=== PATIENT | female | born 1965 | race Caucasian/White ===

== ENCOUNTER → 2016-10-31 | Day surgery (SDC) | payer OTHER ==
[2016-10-31 12:34] VITALS: BMI 25.9
[2016-10-31 15:02] VITALS: BP 140/70; PULSE 64
[2016-10-31 15:32] VITALS: TEMP 97.6
== END | disposition home or self-care (01) ==
LOC: JASU-ENDO 11:40
PROVIDERS: ATTEND Internal Medicine Gastroenterology
PROC: 0DJ08ZZ Inspection of Upper Intestinal Tract, Via Natural or Artificial Opening Endoscopic (ICD-10-PCS; principal; 2016-10-31 12:00)
DX: K21.9 Gastro-esophageal reflux disease without esophagitis (principal); K44.9 Diaphragmatic hernia without obstruction or gangrene

== ENCOUNTER → 2017-06-21 | Day surgery (SDC) | payer OTHER ==
--- NOTE | 2017-06-25 14:16 | PATH ---
Cytology Non-Gynecological Report Patient Name: ALISSA FRANCO [facility]. Rec. #: [id number] /Age/Gender: 1965 (Age: 52) / F Account: [id number] Location: RADIOLOGY Taken: 06/21/2017 Received: 06/21/2017 Reported: 06/25/2017 Physicians: Raf Rehman M.D. Specimen(s) Received LEFT THYROID FNA Clinical History Left thyroid nodule 2.60 x 1.78 x 1.38 cm Final Diagnosis THYROID, LEFT, FINE NEEDLE ASPIRATION: SATISFACTORY FOR EVALUATION. BETHESDA CLASS II: BENIGN. CYTOLOGIC FINDINGS ARE SUGGESTIVE OF A BENIGN FOLLICULAR NODULE. FEW CLUSTERS OF SMALL FOLLICULAR CELLS AND SCANT COLLOID PRESENT. 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 Recommend correlation with nodule size and complexity on ultrasound to assist in further management of the lesion. Electronically Signed Alissa Armijo M.D. Gross Description Received are eight direct smears, four of which are air-dried and Diff-Quik stained, and four of which are alcohol fixed and Pap stained. Also received is 20 ml of bloody formalin from which one cellblock is prepared. Received is a 1.5 ml molecular ThyroSeq tube.
== END | disposition home or self-care (01) ==
LOC: JRADIR 08:11
PROVIDERS: ATTEND Surgery
PROC: 0G9G3ZX Drainage of Left Thyroid Gland Lobe, Percutaneous Approach, Diagnostic (ICD-10-PCS; principal; 2017-06-21)
DX: E04.1 Nontoxic single thyroid nodule (principal)
CPT/HCPCS: 76942; 88173; 88305-TC

== ENCOUNTER 2019-04-13 12:33 | Emergency (ER) | payer OTHER ==
[2019-04-13 12:40] VITALS: TEMP 98; BMI 25.0
[2019-04-13] MEDS ORDERED: FAMOTIDINE 20 MG/50 ML IVPB 20 MG/50 ML MG IVPB ONE ×2 (13:00→13:15)
[2019-04-13] MEDS ORDERED: ONDANSETRON 4 MG/2 ML VIAL IVPUSH ONE (13:00)
[2019-04-13] MEDS ORDERED: ONDANSETRON 4 MG/2 ML VIAL ONE (13:13)
[2019-04-13] MEDS ORDERED: morphine CARPU-JECT 4 MG/1 ML DISP.SYRIN IVPUSH ONE ×2 (13:13→14:27)
[2019-04-13] MEDS ORDERED: MORPHINE SULFATE 2 MG/ML VIAL ONE (13:15)
--- NOTE | 2019-04-13 13:26 | PDOC ---
History of Present Illness - General Chief Complaint: Pain Stated Complaint: ABD PAIN Time Seen by Provider: 04/13/19 12:52 History Source: Patient Exam Limitations: Other (uncooperative with lithuanian translators despite multiple attempts; pt only answering some questions) - History of Present Illness Initial Comments: Pt is a 54 yo F, with PMH of HTN, HLD, GERD, nodular goiter, PAfib, who is presenting with complaints of LLQ abdominal and L flank pain which began last night, and is associated with NBNB nausea and vomiting. With first history taking, pt stated it was also associated with vaginal bleeding since last night , despite having hysterectomy and LMP was 3 years ago. Pt later stated there was no vaginal bleeding, but she did endorse hematuria, dysuria, and urinary frequency. Pt denies any fevers/chills, headache, vision changes, syncope, chest pain, palpitations, SOB, or diarrhea/constipation. Pt is poor historian and is generally uncooperative with computer assembler phone, despite multiple attempts at getting history. Allergies: NKDA PCP: Shalini Social: Pt denies any cigarette, alcohol, or drug use. Pt denies any recent travel or sick contacts. Surgical: hysterectomy Family: no relevant history. No known nephrolithiasis to pt or near family members. 04/13/19 13:26 04/13/19 13:45 04/13/19 13:51 Past History - Travel Traveled outside of the country in the last 30 days: No Close contact w/someone who was outside of country & ill: No - Past Medical History Allergies/Adverse Reactions: Allergies Allergy/AdvReac Type Severity Reaction Status Date / Time No Known Allergies Allergy Verified 04/13/19 12:40 Home Medications: Ambulatory Orders Omeprazole [Prilosec (RX)] 40 mg PO DAILY 08/07/15 Atorvastatin Ca [Lipitor] 20 mg PO HS #30 tablet 08/09/15 Rivaroxaban [Xarelto -] 20 mg PO DAILY 10/17/15 Metoprolol Succinate [Toprol XL -] 50 mg PO AM 04/13/19 Metoprolol Succinate [Toprol Xl] 25 mg PO HS 04/13/19 Anemia: No Asthma: No Cancer: No Cardiac Disorders: Yes (A-FIB) CVA: No COPD: No CHF: No Dementia: No Diabetes: No GI Disorders: Yes (GERD) Disorders: No HTN: Yes Hypercholesterolemia: Yes Liver Disease: No Seizures: No Thyroid Disease: No - Surgical History Abdominal Surgery: No Appendectomy: No Cholecystectomy: No Orthopedic Surgery: No - Immunization History Immunization Up to Date: Yes - Psycho Social/Smoking Cessation Hx Smoking History: Never smoked Have you smoked in the past 12 months: No Number of Cigarettes Smoked Daily: 0 Hx Alcohol Use: No Drug/Substance Use Hx: No Substance Use Type: None Abd/GI Specific PMHX - Complaint Specific PMHX Colitis: No Diverticulitis: No Gall Bladder Disease: No GERD: No Hepatitis: No Irritable Bowel Synd (IBS): No Pancreatitis: No GI Ulcer Disease: No Review of Systems - Review of Systems Able to Perform ROS?: Yes (limited, see HPI) Is the patient limited Belarusian proficient: Yes *Physical Exam - Vital Signs Last Vital Signs Temp Pulse Resp BP Pulse Ox 98 F 60 18 171/90 H 100 04/13/19 12:37 04/13/19 12:37 04/13/19 12:37 04/13/19 12:37 04/13/19 12:37 - Physical Exam Comments: HTN 171/90, pt afebrile. Pt writhing in bed, attempting to remove her clothing in the hallway. Normal body habitus. Pt alert and oriented x3. records management technician generally intact, muscular strength and sensation intact. No midline spinal tenderness, step-offs, or crepitus. Head normocephalic, atraumatic. Eyes PERRLA, EOMI. Oropharynx without erythema or exudates, no LAD b/l. No nasal congestion. Hearing intact. Clear heart sounds, S1/S2, no JVD, b/l pedal edema, or heart murmur. Clear lung sounds, no respiratory distress, wheezes, crackles, or accessory muscle use. LLQ TTP, with no rebound, no guarding. Abdomen soft, non-distended, and with normoactive bowel sounds. No CVA TTP. No blood in vaginal canal. No CMT or adnexal TTP. Physiologic discharge present. Skin without jaundice or rash. 04/13/19 13:52 ED Treatment Course - LABORATORY CBC & Chemistry Diagram: 04/13/19 13:00 04/13/19 13:00 Medical Decision Making - Medical Decision Making Pt was seen at bedside, also will be seen by attending Dr. Frias. Pt presenting with LLQ/flank pain and urinary symptoms. Pt later rescinded complaint of vaginal bleeding, and pelvic exam was normal. Pain likely 2/2 nephrolithiasis, will also evaluate for ischemic bowel (hx PAF), appendicitis, pyelonephritis, UTI, diverticulitis. Provided 4 mg IV morphine, 4 mg IV zofran, 20 mg IV pepcid for improvement of pain and vomiting. Will continue to reassess pt and monitor for symptomatic improvement. ECG: Sinus bradycardia, LAD (Hr 58, WA 130, QRS 82, QTc 465). No TWIs or significant ST segment changes. No significant changes from prior ECG. 04/13/19 13:53 Pt still in pain, providing 1 L IV NS and 15 mg IV toradol (now that pt endorses urine symptoms, more likely stone than ectopic , TOA, ruptured ovarian cyst, ovarian torsion). 04/13/19 13:57 CBC: WBC 10.7, possibly infectious or reactive due to pain/stress/inflammation CMP WNL -- renal function intact, no elevation of LFTs Lipase 124 04/13/19 13:59 04/13/19 14:01 Pt provided urine sample -- brown urine; adding CPK for rhabdo Provided additional 4 mg IV morphine; BP has remained hypertensive and pt still visibly uncomfortable Lactic acid elevated, test negative -- will obtain CT abd/pelvis with IV contrast Will repeat lactic acid after additional IVF 04/13/19 14:28 UA with blood but not infected CT abd/pelvis: 4 mm L UPJ kidney stone. No other sign of acute pathology. Pt feeling much better. Receiving 2nd liter IV NS -- will re-draw lactic after IVF Likely d/c to home with PCP and urology f/u. 04/13/19 16:07 Lactic decreasing after IVF, likely 2/2 to dehydration. Pt safe for d/c to home with PCP and Urology f/u. Strict return precautions provided with pt understanding. Pt accompanied by her daughter who will take her home. 04/13/19 18:04 Discharge - Discharge Information Problems reviewed: Yes Clinical Impression/Diagnosis: Nephrolithiasis Condition: Improved Disposition: HOME - Admission No - Follow up/Referral Referrals: Denisse Vinson MD [Primary Care Provider] - Brayan Palumbo MD., MD [Staff Physician] - - Patient Discharge Instructions Patient Printed Discharge Instructions: Kidney Stones -- Adult Additional Instructions: You were seen in the ER today for abdominal pain. The results of your labs and imaging today showed dehydration and a left kidney stone. Please follow-up with your primary care doctor and urology within 1-2 days to discuss your visit and make sure your symptoms have improved. Please return to the ER if you have any worsening pain, development of fevers or chills, loss of consciousness, inability to tolerate food or fluids, or any other concerns. You can take tylenol or motrin every 4-6 hours as needed for pain. - Post Discharge Activity
[2019-04-13] MEDS ORDERED: SODIUM CHLORIDE 1,000 ML IV STA ×2 (13:37→14:27)
[2019-04-13 13:41] LABS: BASO % 0.3 % (0-2.0); EOS % 0.7 % (0-4.5); HEMATOCRIT 37.8 % (32.4-45.2); HEMOGLOBIN 12.7 GM/dL (10.7-15.3); LYMPH % 21.6 % (8-40); MCH 29.4 pg (25.7-33.7); MCHC 33.4 g/dl (32.0-36.0); MEAN CELL VOLUME 87.9 fl (80-96); MEAN PLT VOLUME 8.1 fl (7.5-11.1); MONO % 4.6 % (3.8-10.2); NEUT % 72.8 % (42.8-82.8); PLATELET COUNT 257 K/MM3 (134-434); RBC 4.31 M/mm3 (3.60-5.2); RDW 13.9 % (11.6-15.6); WHITE BLOOD COUNT 10.7 K/mm3 (4.0-10.0)
[2019-04-13] MEDS ORDERED: KETOROLAC TROMETHAMINE 15 MG/ML VIAL IVPUSH ONE (13:41)
[2019-04-13] MEDS ORDERED: KETOROLAC TROMETHAMINE 15 MG/ML VIAL ONE (13:49)
[2019-04-13 13:50] LABS: ALBUMIN 3.8 g/dl (3.4-5.0); BILIRUBIN,TOTAL 0.4 mg/dL (0.2-1); BLOOD UREA NITROGEN 5.9 mg/dL (7-18); CALCIUM 8.9 mg/dL (8.5-10.1); CREATININE 0.9 mg/dL (0.55-1.3); POTASSIUM 3.7 mmol/L (3.5-5.1)
[2019-04-13 14:04] LABS: INR 1.54 (0.83-1.09); PROTHROMBIN TIME (PATIENT) 18.2 SEC (9.7-13.0)
[2019-04-13] MEDS ORDERED: morphine SULFATE 4 MG/ML VIAL ONE (14:28)
[2019-04-13 14:42] LABS: EPI CELLS 3.9 /HPF (0-5/HPF); HYALINE CASTS 23 /lpf (0-8); URINE APPEARANCE TURBID; URINE BACTERIA 4.1 /hpf (NEGATIVE); URINE BILIRUBIN NEGATIVE (NEGATIVE); URINE COLOR ORANGE; URINE GLUCOSE (UA) NEGATIVE (NEGATIVE); URINE KETONE 1+ (NEGATIVE); URINE LEUK ESTERASE TRACE (NEGATIVE); URINE NITRITE NEGATIVE (NEGATIVE); URINE PROTEIN 2+ (NEGATIVE); URINE RBC 1080 /hpf (0-4); URINE UROBILINOGEN 0.2 mg/dL (0.2-1.0); URINE WBC 7 /hpf (0-5)
--- NOTE | 2019-04-13 15:29 | PDOC ---
Documentation entered by Omar Baugh SCRIBE, acting as scribe for Lei Frias MD. Lei Frias MD: This documentation has been prepared by the Lupis osborn Nirvannie, SCRIBE, under my direction and personally reviewed by me in its entirety. I confirm that the documentation accurately reflects all work, treatment, procedures, and medical decision making performed by me. Attending Attestation - Resident Resident Name: June Quintanilla - ED Attending Attestation I have performed the following: I have examined & evaluated the patient, The case was reviewed & discussed with the resident, I agree w/resident's findings & plan, Exceptions are as noted - HPI HPI: 04/13/19 13:55 54 F with h/o HTN, GERD, pAfib, presenting to ED with L sided abdominal pain. Pt states that it started last night. THe pain radiates from her L flank towards her LLQ. Pt endorses nausea and vomiting. Denies F/C. She states that she noticed blood in her urine. Denies any diarrhea/constipation. Endorses dysuria and frequency. No h/o kidney stones. - Physicial Exam PE: 04/13/19 13:56 GENERAL: Awake, alert, and fully oriented, in no acute distress. HEAD: No signs of trauma EYES: PERRLA, EOMI, sclera anicteric, conjunctiva clear ENT: Auricles normal inspection, hearing grossly normal, nares patent, oropharynx clear without exudates. Moist mucosa NECK: Nontender, no stepoffs, Normal ROM, supple, no lymphadenopathy, JVD, or masses LUNGS: Breath sounds equal, clear to auscultation bilaterally. No wheezes, and no crackles HEART: Regular rate and rhythm, normal S1 and S2, no murmurs, rubs or gallops ABDOMEN: + L CVAT, + LLQ TTP, normoactive bowel sounds. No guarding, no rebound. No masses EXTREMITIES: Normal range of motion, no edema. No clubbing or cyanosis. No cords, erythema, or tenderness NEUROLOGICAL: Cranial nerves II through XII intact. 5/5 strength and sensation in all extremities, Normal speech, normal gait, normal cerebellar function SKIN: Warm, Dry, normal turgor, no rashes or lesions noted. - Medical Decision Making 04/13/19 13:57 54 F with L flank pain radiating to L groin. Suspect renal colic. - Labs, UA, UCx - CTAP - IVF, pain control
[2019-04-13 17:55] VITALS: BP 150/78; PULSE 60
--- NOTE | 2019-04-14 16:00 | EKG ---
Test Reason : Blood Pressure : / mmHG Vent. Rate : 058 BPM Atrial Rate : 058 BPM P-R Int : 130 ms QRS Dur : 082 ms QT Int : 474 ms P-R-T Axes : 018 -20 028 degrees QTc Int : 465 ms SINUS BRADYCARDIA OTHERWISE NORMAL ECG WHEN COMPARED WITH ECG OF 17-OCT-2015 11:02, SINUS RHYTHM HAS REPLACED ATRIAL FIBRILLATION VENT. RATE HAS DECREASED BY 99 BPM Confirmed by DAJUAN DE LA GARZA, CARLOS ([id number]) on 04/14/2019 4:00:20 PM Referred By: Confirmed By:CARLOS GRAFF MD
== END 2019-04-13 18:25 | disposition home or self-care (01) ==
LOC: JER 12:33
PROC: 3E0337Z Introduction of Electrolytic and Water Balance Substance into Peripheral Vein, Percutaneous Approach (ICD-10-PCS; principal; 2019-04-13)
PROC: 3E033GC Introduction of Other Therapeutic Substance into Peripheral Vein, Percutaneous Approach (ICD-10-PCS; 2019-04-13)
PROC: 3E033NZ Introduction of Analgesics, Hypnotics, Sedatives into Peripheral Vein, Percutaneous Approach (ICD-10-PCS; 2019-04-13)
PROC: 3E033GC Introduction of Other Therapeutic Substance into Peripheral Vein, Percutaneous Approach (ICD-10-PCS; 2019-04-13)
PROC: 3E0333Z Introduction of Anti-inflammatory into Peripheral Vein, Percutaneous Approach (ICD-10-PCS; 2019-04-13)
DX: N20.0 Calculus of kidney (principal); I10 Essential (primary) hypertension; E78.5 Hyperlipidemia, unspecified; K21.9 Gastro-esophageal reflux disease without esophagitis; E04.9 Nontoxic goiter, unspecified; I48.0 Paroxysmal atrial fibrillation; Z79.01 Long term (current) use of anticoagulants; Z90.710 Acquired absence of both cervix and uterus
CPT/HCPCS: 36415; 74177-TC; 80053; 81003; 82550; 82553; 83605; 83690; 84703; 85025; 85610; 87086; 93005; 93010; 99283-25; J7030

== ENCOUNTER 2020-01-29 11:50 | Inpatient (IN) | payer OTHER ==
[2020-01-29 11:58] VITALS: BMI 26.6
--- NOTE | 2020-01-29 12:28 | PDOC ---
History of Present Illness - General Chief Complaint: Pain Stated Complaint: RECTAL BLEED Time Seen by Provider: 01/29/20 12:27 - History of Present Illness Initial Comments: 55 YOF h/o htn, afib, GERD, on xerelto presents for lower abdominal pain and hematochezia. Per patient she has had lower abdominal pain as well as upper left leg pain for over one month. Two days prior to arrival she began to experience intense 9/10 pain in her lower abdomen, particularly in the lower left quadrant. During this same period she has had 10 bloody bowel movements. She reports that the blood is mixed in with the stool and is streaking her toilet paper. She denies pain with defecation. She denies CP, SOB, N/V, fever or chills, or recent sick contacts. Past History - Medical History Allergies/Adverse Reactions: Allergies Allergy/AdvReac Type Severity Reaction Status Date / Time No Known Allergies Allergy Verified 01/29/20 11:58 Home Medications: Ambulatory Orders Omeprazole [Prilosec (RX)] 40 mg PO DAILY 08/07/15 Atorvastatin Ca [Lipitor] 20 mg PO HS #30 tablet 08/09/15 Rivaroxaban [Xarelto -] 20 mg PO DAILY 10/17/15 Metoprolol Succinate [Toprol XL -] 100 mg PO AM 04/13/19 Hydrochlorothiazide 25 mg PO DAILY 01/29/20 Anemia: No Asthma: No Cancer: No Cardiac Disorders: Yes (A-FIB) CVA: No COPD: No CHF: No Dementia: No Diabetes: No GI Disorders: Yes (GERD) Disorders: No HTN: Yes Hypercholesterolemia: Yes Liver Disease: No Seizures: No Thyroid Disease: No - Surgical History Abdominal Surgery: No Appendectomy: No Cholecystectomy: No Orthopedic Surgery: No - Reproductive History Is Patient Now?: No - Immunization History Immunization Up to Date: Yes - Psycho-Social/Smoking History Smoking History: Never smoked Have you smoked in the past 12 months: No Number of Cigarettes Smoked Daily: 0 Information on smoking cessation initiated: No - Substance Abuse Hx (Audit-C & DAST Scrn) How often the patient has a drink containing alcohol: Never Score: In Men: 4 or > Positive; In Women: 3 or > Positive: 0 Screen Result (Pos requires Nsg. Audit-10AR): Negative In the last yr the pt used illegal drug/Rx for NonMed reason: No Score: Yes response is considered Positive: 0 Screen Result (Positive result requires Nsg. DAST-10): Negative Review of Systems - Review of Systems Able to Perform ROS?: Yes Is the patient limited Wallisian proficient: Yes Constitutional: Yes: See HPI HEENTM: Yes: See HPI Respiratory: Yes: See HPI Cardiac (ROS): Yes: See HPI *Physical Exam - Vital Signs Last Vital Signs Temp Pulse Resp BP Pulse Ox 97.4 F L 102 H 18 151/92 99 01/29/20 11:56 01/29/20 11:56 01/29/20 11:56 01/29/20 11:56 01/29/20 11:56 - Physical Exam General Appearance: Yes: Nourished, Appropriately Dressed, Mild Distress HEENT: positive: EOMI, SANDRINE, Normal ENT Inspection Neck: positive: Trachea midline, Normal Thyroid Respiratory/Chest: positive: Lungs Clear, Normal Breath Sounds Cardiovascular: positive: Regular Rhythm, Regular Rate, S1, S2 Gastrointestinal/Abdominal: positive: Normal Bowel Sounds, Tender, Soft, Tenderness ED Treatment Course - LABORATORY CBC & Chemistry Diagram: 01/29/20 20:00 01/29/20 13:30 Medical Decision Making - Medical Decision Making 55 YOF h/o htn, afib, GERD, on xerelto presents for lower abdominal pain and hematochezia. Per patient she has had lower abdominal pain as well as upper left leg pain for over one month. Two days prior to arrival she began to experience intense 9/10 pain in her lower abdomen, particularly in the lower left quadrant. During this same period she has had 10 bloody bowel movements. She reports that the blood is mixed in with the stool and is streaking her toilet paper. She denies pain with defecation. She denies CP, SOB, N/V, fever or chills, or recent sick contacts. Vitals on arrival wnl, physical exam reveals ttp LLQ. ddx: diverticulitis, diverticulosis, hemorrhoids, gastritis, AVM plan: CBC, CMP, CT abdomen reassess: labs wnl, patient signed out to night team Discharge - Discharge Information Problems reviewed: Yes Clinical Impression/Diagnosis: Diverticulitis, Perforation bowel, Rectal bleed - Follow up/Referral - Patient Discharge Instructions - Post Discharge Activity
[2020-01-29 13:57] LABS: BASO % 0.6 % (0-2.0); EOS % 0.2 % (0-4.5); HEMATOCRIT 38.6 % (32.4-45.2); HEMOGLOBIN 13.1 GM/dL (10.7-15.3); LYMPH % 17.2 % (8-40); MCH 28.6 pg (25.7-33.7); MCHC 34.1 g/dl (32.0-36.0); MEAN CELL VOLUME 84.1 fl (80-96); MEAN PLT VOLUME 8.1 fl (7.5-11.1); MONO % 8.1 % (3.8-10.2); NEUT % 73.9 % (42.8-82.8); PLATELET COUNT 361 K/MM3 (134-434); RBC 4.58 M/mm3 (3.60-5.2); RDW 13.9 % (11.6-15.6); WHITE BLOOD COUNT 10.6 K/mm3 (4.0-10.0)
[2020-01-29 14:30] LABS: ALBUMIN 3.9 g/dl (3.4-5.0); BLOOD UREA NITROGEN 9.6 mg/dL (7-18); CALCIUM 9.4 mg/dL (8.5-10.1); CREATININE 0.9 mg/dL (0.55-1.3); POTASSIUM 4.5 mmol/L (3.5-5.1); TOT PROT 7.9 g/dl (6.4-8.2)
--- NOTE | 2020-01-29 16:51 | PDOC ---
Documentation entered by Avery Abernathy SCRIBE, acting as scribe for Anne Sharif MD. Anne Sharif MD: This documentation has been prepared by the Michela osborn Xhesika, SCRIBE, under my direction and personally reviewed by me in its entirety. I confirm that the documentation accurately reflects all work, treatment, procedures, and medical decision making performed by me. Attending Attestation - Resident Resident Name: Saurabh Taveras - ED Attending Attestation I have performed the following: I have examined & evaluated the patient, The case was reviewed & discussed with the resident, I agree w/resident's findings & plan, Exceptions are as noted - HPI HPI: 01/29/20 12:35 The patient is a 55y/o F with a pmh of HTN, GERD, pAfib who presents to the ED for 1 month of lower abdominal pain and rectal bleed yesterday. States pain was more severe over the past 2 days and a/w multiple BMs with blood in stool. Denies pain with defecation. Allergies: NKDA PCP: Nikos Gardner - Physicial Exam PE: 01/29/20 15:21 General: non-toxic appearing Abdomen: soft, LLQ ttp, no rebound, no guarding, no masses - Medical Decision Making 01/29/20 15:22 55 yo F with LLQ abd pain and BRBPR and on stool concern for lower GI bleed vs. diverticulitis vs. ischemic colitis vs. lower suspicion for fissures or hemorrhoids as patient also reporting abd pain vs. kidney stone. Plan: -labs -urine -CT a/p -pain control as needed -reassess This clinical encounter is taking place during a federal and state health care emergency attributable to the novel Doyle Virus pandemic. The [place] of the Department of Health and Human Services has declared, pursuant to the Public Health Service Act 319F-3 (42 U.S.C. 247d-6d), that a covered persons activities related to medical countermeasures against COVID-19 will be immune from liability under Federal and State law. Discharge - Discharge Information Problems reviewed: Yes Clinical Impression/Diagnosis: Diverticulitis, Perforation bowel, Rectal bleed - Follow up/Referral - Patient Discharge Instructions - Post Discharge Activity
[2020-01-29] MEDS ORDERED: PIPERACILLIN/TAZOB 3.375 GM 3.375 GM in DEXTROSE 5%-WATER - 50 ML IVPB ONE (20:12)
[2020-01-29] MEDS ORDERED: LACTATED RINGERS SOLUTION 1000 ML INFUS.BAG IV ONE (20:14)
[2020-01-29] MEDS ORDERED: FAMOTIDINE 20 MG/50 ML IVPB 20 MG/50 ML MG IVPB ONE ×2 (20:16→20:50)
[2020-01-29] MEDS ORDERED: morphine CARPU-JECT 2 MG/1 ML DISP.SYRIN IVPUSH ONE (20:16)
[2020-01-29] MEDS ORDERED: ONDANSETRON 4 MG/2 ML VIAL IVPUSH ONE (20:16)
[2020-01-29] MEDS ORDERED: MORPHINE SULFATE 2 MG/ML VIAL ONE (20:23)
[2020-01-29] MEDS ORDERED: PIPERACILLIN/TAZOB 3.375 GM 3.375 GM/50 ML BAG IVPB ONE (20:23)
--- NOTE | 2020-01-29 20:31 | PDOC ---
*Physical Exam - Vital Signs Last Vital Signs Temp Pulse Resp BP Pulse Ox 98.5 F 100 H 18 146/90 96 01/29/20 20:03 01/29/20 20:03 01/29/20 20:03 01/29/20 20:03 01/29/20 20:03 - Physical Exam 01/29/20 20:[address]aver[address] scan -> diverticuli w/ microperforation. Consulted w/ [place] -> he instructed to 1. stop Xarelto and 2. consult GI bc of bleeding. He will see her in the AM. ED Treatment Course - LABORATORY CBC & Chemistry Diagram: 01/29/20 13:30 01/29/20 13:30 - ADDITIONAL ORDERS Additional order review: Laboratory Results 01/29/20 01/29/20 13:30 12:22 Sodium 135 L Potassium 4.5 Chloride 97 L Carbon Dioxide 31 Anion Gap 7 L BUN 9.6 Creatinine 0.9 Est GFR (CKD-EPI)AfAm 82.84 Est GFR (CKD-EPI)NonAf 71.48 Random Glucose 91 Calcium 9.4 Total Bilirubin 1.0 AST 54 H ALT 29 Alkaline Phosphatase 125 H Total Protein 7.9 Albumin 3.9 Stool Occult Blood Positive 01/29/20 13:30 RBC 4.58 MCV 84.1 MCHC 34.1 RDW 13.9 MPV 8.1 Neutrophils % 73.9 Lymphocytes % 17.2 D Monocytes % 8.1 Eosinophils % 0.2 Basophils % 0.6 Discharge - Discharge Information Problems reviewed: Yes Clinical Impression/Diagnosis: Diverticulitis, Perforation bowel, Rectal bleed - Admission Yes - Follow up/Referral Referrals: Nikos Blood II, DO [Primary Care Provider] - - Patient Discharge Instructions - Post Discharge Activity
[2020-01-29 20:37] LABS: HEMATOCRIT 39.4 % (32.4-45.2); HEMOGLOBIN 13.4 GM/dL (10.7-15.3); MCHC 34.1 g/dl (32.0-36.0); MEAN CELL VOLUME 85.1 fl (80-96); PLATELET COUNT 269 K/MM3 (134-434); RBC 4.63 M/mm3 (3.60-5.2); RDW 13.8 % (11.6-15.6); WHITE BLOOD COUNT 10.2 K/mm3 (4.0-10.0)
[2020-01-29 21:20] LABS: INR 1.47 (0.83-1.09); PROTHROMBIN TIME (PATIENT) 17.4 SEC (9.7-13.0)
[2020-01-29] MEDS ORDERED: MORPHINE SULFATE 2 MG/ML VIAL IVPUSH PRN (21:20)
[2020-01-29 21:23] LABS: ACTIVATED PTT 35.2 SECONDS (25.2-36.5)
[2020-01-29] MEDS ORDERED: HYDROCHLOROTHIAZIDE 25 MG TABLET (FP) PO ONE (21:34)
[2020-01-29] MEDS ORDERED: HYDROCHLOROTHIAZIDE 25 MG TABLET (FP) ONE (21:57)
--- NOTE | 2020-01-29 21:58 | HP ---
CHIEF COMPLAINT: abdominal pain for one month duration PCP: Brenda HISTORY OF PRESENT ILLNESS: 50-year-old lady with Mhx of HTN, hyperlipidemia, Paroxismal AFib on Xarelto, GERD and nodular goiter (benign), diverticulosis who comes to the ER complaining from worsening abdominal pain of 2 days duration associated with bloody BM (stool mixed with blood). Pt reported that her condition started one month ago with colicky and vague abdominal pain/discomfort, not related to food, and not relieved by BM. Pt sought medical attention and saw her PCP and freight receiver but was not given specific diagnosis. She was referred to GI and had colonoscopy scheduled next week. However, her pain worsen and prevented her from doing normal activities, and yesterday she noticed bright red blood mixed with her stool. Pt denies dizziness, LOC, CP. ER course was notable for: (1) CT a/p with contrast revealed acute sigmoid diverticulitis with probable microperforation (2) consulted surgery (3) Recent Travel: no PAST MEDICAL HISTORY: HTN, hyperlipidemia, Paroxismal AFib on Xarelto, GERD and nodular goiter (benign), diverticulosis PAST SURGICAL HISTORY: c-sections, hysterectomy for endometriosis, breast reduction Social History: Smoking: denies Alcohol: denies Drugs: denies Allergies No Known Allergies Allergy (Verified 01/29/20 11:58) HOME MEDICATIONS: Home Medications Medication Instructions Recorded Omeprazole [Prilosec (RX)] 40 mg PO DAILY 08/07/15 Atorvastatin Ca [Lipitor] 20 mg PO HS #30 tablet 08/09/15 Rivaroxaban [Xarelto -] 20 mg PO DAILY 10/17/15 Metoprolol Succinate [Toprol XL -] 100 mg PO AM 04/13/19 Hydrochlorothiazide 25 mg PO DAILY 01/29/20 REVIEW OF SYSTEMS CONSTITUTIONAL: Absent: fever, chills, diaphoresis, generalized weakness, malaise, loss of appetite, weight change HEENT: Absent: rhinorrhea, nasal congestion, throat pain, throat swelling, difficulty swallowing, mouth swelling, ear pain, eye pain, visual changes CARDIOVASCULAR: Absent: chest pain, syncope, palpitations, irregular heart rate, lightheadedness, peripheral edema RESPIRATORY: Absent: cough, shortness of breath, dyspnea with exertion, orthopnea, wheezing, stridor, hemoptysis GASTROINTESTINAL: Absent: see HPI GENITOURINARY: Absent: dysuria, frequency, urgency, hesitancy, hematuria, flank pain, genital pain MUSCULOSKELETAL: Absent: myalgia, arthralgia, joint swelling, back pain, neck pain SKIN: Absent: rash, itching, pallor HEMATOLOGIC/IMMUNOLOGIC: Absent: easy bleeding, easy bruising, lymphadenopathy, frequent infections ENDOCRINE: Absent: unexplained weight gain, unexplained weight loss, heat intolerance, cold intolerance NEUROLOGIC: Absent: headache, focal weakness or paresthesias, dizziness, unsteady gait, seizure, mental status changes, bladder or bowel incontinence PSYCHIATRIC: Absent: anxiety, depression, suicidal or homicidal ideation, hallucinations. PHYSICAL EXAMINATION Vital Signs - 24 hr 01/29/20 01/29/20 11:56 20:03 Temperature 97.4 F L 98.5 F Pulse Rate 102 H Pulse Rate [ 100 H Right Radial] Respiratory 18 18 Rate Blood Pressure 151/92 Blood Pressure 146/90 [Left Arm] O2 Sat by Pulse 99 96 Oximetry (%) GENERAL: Awake, alert, and fully oriented, in no acute distress. HEAD: Normal with no signs of trauma. EYES: Pupils equal, round and reactive to light, extraocular movements intact, sclera anicteric, conjunctiva clear. No lid lag. EARS, NOSE, THROAT: Ears normal, nares patent, oropharynx clear without exudates. Moist mucous membranes. NECK: Normal range of motion, supple without lymphadenopathy, JVD, or masses. LUNGS: Breath sounds equal, clear to auscultation bilaterally. No wheezes, and no crackles. No accessory muscle use. HEART: Regular rate and rhythm, normal S1 and S2 without murmur, rub or gallop. ABDOMEN: Soft, tender LLQ, no rebound tenderness, BS+. No hepatomegaly or splenomegaly. MUSCULOSKELETAL: Normal range of motion at all joints. No bony deformities or tenderness. No CVA tenderness. UPPER EXTREMITIES: 2+ pulses, warm, well-perfused. No cyanosis. No clubbing. No peripheral edema. LOWER EXTREMITIES: 2+ pulses, warm, well-perfused. No calf tenderness. No peripheral edema. NEUROLOGICAL: Cranial nerves II-XII intact. Normal speech. Normal gait. PSYCHIATRIC: Cooperative. Good eye contact. Appropriate mood and affect. SKIN: Warm, dry, normal turgor, no rashes or lesions noted, normal capillary refill. Laboratory Results - last 24 hr 01/29/20 01/29/20 01/29/20 12:22 13:30 13:30 WBC 10.6 H RBC 4.58 Hgb 13.1 Hct 38.6 MCV 84.1 MCH 28.6 MCHC 34.1 RDW 13.9 Plt Count 361 D MPV 8.1 Absolute Neuts (auto) 7.9 Neutrophils % 73.9 Lymphocytes % 17.2 D Monocytes % 8.1 Eosinophils % 0.2 Basophils % 0.6 Nucleated RBC % 0 PT with INR INR PTT (Actin FS) Sodium 135 L Potassium 4.5 Chloride 97 L Carbon Dioxide 31 Anion Gap 7 L BUN 9.6 Creatinine 0.9 Est GFR (CKD-EPI)AfAm 82.84 Est GFR (CKD-EPI)NonAf 71.48 Random Glucose 91 Calcium 9.4 Total Bilirubin 1.0 AST 54 H ALT 29 Alkaline Phosphatase 125 H Total Protein 7.9 Albumin 3.9 Stool Occult Blood Positive 01/29/20 01/29/20 20:00 20:50 WBC 10.2 H RBC 4.63 Hgb 13.4 Hct 39.4 MCV 85.1 MCH 29.0 MCHC 34.1 RDW 13.8 Plt Count 269 D MPV 8.0 Absolute Neuts (auto) Neutrophils % Lymphocytes % Monocytes % Eosinophils % Basophils % Nucleated RBC % PT with INR 17.40 H INR 1.47 H PTT (Actin FS) 35.2 Sodium Potassium Chloride Carbon Dioxide Anion Gap BUN Creatinine Est GFR (CKD-EPI)AfAm Est GFR (CKD-EPI)NonAf Random Glucose Calcium Total Bilirubin AST ALT Alkaline Phosphatase Total Protein Albumin Stool Occult Blood ASSESSMENT/PLAN: 50-year-old lady with Mhx of HTN, hyperlipidemia, Paroxismal AFib on Xarelto, GERD, hiatal hernia, colonic polyp resection (7yrs ago) and nodular goiter (benign), diverticulosis who comes to the ER complaining from worsening abdominal pain of 2 days duration associated with bloody BM (stool mixed with blood). admitted for acute diverticulitis with microperforation. # Sepsis due to Acute sigmoid diverticulitis with microperforation: has tachycardia, leukocytosis, sourse of infection meeting sepsis criteria pt w hx of diverticulosis, colonic polyps resection [address] a/p with contrast revealed acute sigmoid diverticulitis with probable microperforation RCRI 1 (class II risk), ASA3/ASA3E surgery consulted in ED Hold Xarelto trend H&H Keep NPO, IV hydration, Zosyn follow CXR, EKG GI consult #paroxysmal AFib Hold Xarelto for now c/w metoprolol [id number] is 2 Cardiology consult HTN HLD GERD HH DVT prophylaxis with SCD in anticipation of surgery Family Medical History Family History: As Documented Family Hx Cardiac Disorders: Grandmother (maternal), Grandmother (paternal), Grandfather (maternal), Grandfather (paternal), Mother, Father Family Hx Coronary Artery Disease: Grandmother (maternal), Grandmother (paternal), Grandfather (maternal), Grandfather (paternal), Mother, Father Visit type - Emergency Visit Emergency Visit: Yes Care time: The patient presented to the Emergency Department on the above date and was hospitalized for further evaluation of their emergent condition. - New Patient This patient is new to me today: Yes Date on this admission: 01/30/20 - Critical Care Critical Care patient: No
[2020-01-29] MEDS: FAMOTIDINE 20 MG/50 ML IVPB 20 MG/50 ML MG IVPB SCH (22:12)
[2020-01-30 00:49] LABS: URINE COLOR YELLOW
[2020-01-30 00:50] LABS: PH,URINE 5.5 (5.0-8.0); URINE APPEARANCE CLEAR; URINE BILIRUBIN NEGATIVE (NEGATIVE); URINE GLUCOSE (UA) NEGATIVE (NEGATIVE); URINE KETONE 15 mg/dl (NEGATIVE)
[2020-01-30 00:51] LABS: URINE LEUK ESTERASE NEGATIVE (NEGATIVE); URINE NITRITE NEGATIVE (NEGATIVE); URINE PROTEIN NEGATIVE (NEGATIVE); URINE UROBILINOGEN 0.2 mg/dL (0.2-1.0)
[2020-01-30] MEDS ORDERED: PIPERACILLIN/TAZOBACTAM 3.375 GM VIAL IVPB ONE ×3 (03:59→17:26)
[2020-01-30] MEDS ORDERED: DEXTROSE 5%-WATER - 50 ML IVPB ONE ×3 (04:00→17:27)
[2020-01-30] MEDS: PIPERACILLIN/TAZOB 3.375 GM 3.375 GM in DEXTROSE 5%-WATER - 50 ML IVPB SCH ×4 (04:09→17:49)
--- NOTE | 2020-01-30 05:30 | CON.CARD ---
Consult Consult Specialty:: Cardiology Referred by:: Dr. Pollack Reason for Consultation:: Assistance in management of anticoagulation - History of Present Illness Chief Complaint: Abdominal pain x 1 month History of Present Illness: 55 F PAF on Xarelto (sees Dr. Shyam Gimenez) admitted with one month of crampy abdominal pain, found to have left sided diverticulitis with microperforation on CT. We are called for guidance with management of anticoagulation. She reports recent bloody bowel movements. She is guaiac + Currently in NSR, denies hx of stroke. No CP/SOB/palps. ECG: NSR 92bpm, QTc= 445ms. No Qs or sig ST changes. - History Source History Provided By: Patient (hx in [place]) - Past Medical History Cardio/Vascular: Yes: AFIB (paroxysmal), HTN, Hyperlipdemia Gastrointestinal: Yes: GERD ...: No - Past Surgical History Past Surgical History: Yes: None - Alcohol/Substance Use Hx Alcohol Use: No History of Substance Use: reports: None - Smoking History Smoking history: Never smoked Have you smoked in the past 12 months: No Aproximately how many cigarettes per day: 0 - Social History ADL: Independent Occupation: salesperson History of Recent Travel: No Home Medications - Allergies Allergies/Adverse Reactions: Allergies Allergy/AdvReac Type Severity Reaction Status Date / Time No Known Allergies Allergy Verified 01/29/20 11:58 - Home Medications Home Medications: Ambulatory Orders Omeprazole [Prilosec (RX)] 40 mg PO DAILY 08/07/15 Atorvastatin Ca [Lipitor] 20 mg PO HS #30 tablet 08/09/15 Rivaroxaban [Xarelto -] 20 mg PO DAILY 10/17/15 Metoprolol Succinate [Toprol XL -] 100 mg PO AM 04/13/19 Hydrochlorothiazide 25 mg PO DAILY 01/29/20 Family Medical History Family Hx Cardiac Disorders: Grandmother (maternal), Grandmother (paternal), Grandfather (maternal), Grandfather (paternal), Mother, Father Family Hx Coronary Artery Disease: Grandmother (maternal), Grandmother (paternal), Grandfather (maternal), Grandfather (paternal), Mother, Father Review of Systems Findings/Remarks: see HPI - Review of Systems Constitutional: reports: No Symptoms Eyes: reports: No Symptoms HENT: reports: No Symptoms Neck: reports: No Symptoms Cardiovascular: reports: No Symptoms Respiratory: reports: No Symptoms Gastrointestinal: reports: Abdominal Pain, Rectal Bleeding Genitourinary: reports: No Symptoms Breasts: reports: No Symptoms Reported Musculoskeletal: reports: No Symptoms Integumentary: reports: No Symptoms Neurological: reports: No Symptoms Endocrine: reports: No Symptoms Hematology/Lymphatic: reports: No Symptoms Psychiatric: reports: No Symptoms - Risk Factors Known Risk Factors: Yes: Age, Hypertension Vital Signs: Vital Signs Temperature 98.8 F 01/30/20 02:59 Pulse Rate 87 01/30/20 02:59 Respiratory Rate 01/30/20 02:59 Blood Pressure 157/80 01/30/20 02:59 O2 Sat by Pulse Oximetry (%) 97 01/30/20 02:59 Constitutional: Yes: No Distress, Calm Eyes: Yes: Conjunctiva Clear, EOM Intact HENT: Yes: Atraumatic, Normocephalic Neck: Yes: Supple, Trachea Midline Respiratory: Yes: Regular, CTA Bilaterally Gastrointestinal: Yes: Soft (+ left lower quad tenderness to moderate palpation, no rebound or guarding.) Cardiovascular: Yes: Regular Rate and Rhythm JVD: No Carotid Bruit: No PMI: Non-Displaced Heart Sounds: Yes: S1, S2 (rrr, no m/r/g) Edema: No Peripheral Pulses WNL: Yes Neurological: Yes: Alert, Oriented ...Motor Strength: WNL Psychiatric: Yes: WNL - Other Data Labs, Other Data: CBC, BMP 01/29/20 20:00 01/29/20 13:30 INR, PTT INR 1.47 (0.83-1.09) H 01/29/20 20:50 Laboratory Tests 01/29/20 01/29/20 13:30 13:30 WBC 10.6 H Hgb 13.1 Plt Count 361 D Sodium 135 L Potassium 4.5 Creatinine 0.9 AST 54 H ALT 29 Alkaline Phosphatase 125 H see HPI Imaging - Results Chest X-ray: Image Reviewed Cat Scan: Report Reviewed Assessment/Plan IMP: Acute sigmoid diverticulitis w/ microperforation Guaiac + PAF, currently in NSR. [id number] Score = 2 (F/HTN) REC: 1. Sigmoid diverticulitis: -with radiographic evidence microperf, guaiac + stool -Abx as per primary team, general surgery and GI -follow H/H 2. PAF: -Currently in NSR. -In this setting, Xarelto needs to be held (guaiac +, reported bloody BMS, sig sigmoid inflammation and need for possible interventions) and can be done for several days with overall low risk -Can continue Toprol to maintain NSR/ rate control if she flips into AF. -Currently hemodynamically stable Will follow
[2020-01-30 08:10] LABS: HEMATOCRIT 37.1 % (32.4-45.2); HEMOGLOBIN 12.5 GM/dL (10.7-15.3); MCH 28.8 pg (25.7-33.7); MCHC 33.7 g/dl (32.0-36.0); MEAN CELL VOLUME 85.4 fl (80-96); MEAN PLT VOLUME 8.1 fl (7.5-11.1); PLATELET COUNT 239 K/MM3 (134-434); RBC 4.34 M/mm3 (3.60-5.2); RDW 13.8 % (11.6-15.6); WHITE BLOOD COUNT 6.2 K/mm3 (4.0-10.0)
[2020-01-30 08:20] LABS: INR 1.32 (0.83-1.09); PROTHROMBIN TIME (PATIENT) 15.6 SEC (9.7-13.0)
[2020-01-30 08:52] LABS: POTASSIUM 3.7 mmol/L (3.5-5.1)
--- NOTE | 2020-01-30 09:07 | EKG ---
Test Reason : Blood Pressure : / mmHG Vent. Rate : 092 BPM Atrial Rate : 092 BPM P-R Int : 154 ms QRS Dur : 076 ms QT Int : 360 ms P-R-T Axes : 039 -21 013 degrees QTc Int : 445 ms NORMAL SINUS RHYTHM NORMAL ECG WHEN COMPARED WITH ECG OF 13-APR-2019 13:41, VENT. RATE HAS INCREASED BY 34 BPM Confirmed by ERICKA KENDALL MD ([id number]) on 01/30/2020 9:07:37 AM Referred By: Confirmed By:ERICKA KENDALL MD
[2020-01-30 09:11] LABS: ALBUMIN 3.4 g/dl (3.4-5.0); BILIRUBIN,TOTAL 0.9 mg/dL (0.2-1); BLOOD UREA NITROGEN 9.6 mg/dL (7-18); CALCIUM 8.7 mg/dL (8.5-10.1); CREATININE 0.8 mg/dL (0.55-1.3); MAGNESIUM 2.2 mg/dL (1.8-2.4); PHOSPHOROUS 4.2 mg/dL (2.5-4.9)
--- NOTE | 2020-01-30 10:04 | CONSULT ---
- Consultation REQUESTING PROVIDER: Jaki DE LA GARZA CONSULT REQUEST: We have been asked to surgically evaluate this patient for diverticulitis. Hospitalist:Troy Adams MD HISTORY OF PRESENT ILLNESS: TAZ who is a 55 y/o female who presented w/48 of suprapubic and LLQ abdominal pain; sharp in nature and w/o radiation; not improved or made worse by anything and constant w/slight improvement since initial evaluation in the ED; she has no GI/ or c/o o/w. PMHx: A fib/?GERD/HTN/diverticulitis 2014 of which she has no recollection PSHx: TAHBSO/abdominoplasty/cosmetic breast surgery Home Medications Medication Instructions Recorded Omeprazole [Prilosec (RX)] 40 mg PO DAILY 08/07/15 Atorvastatin Ca [Lipitor] 20 mg PO HS #30 tablet 08/09/15 Rivaroxaban [Xarelto -] 20 mg PO DAILY 10/17/15 Metoprolol Succinate [Toprol XL -] 100 mg PO AM 04/13/19 Hydrochlorothiazide 25 mg PO DAILY 01/29/20 Allergies Allergy/AdvReac Type Severity Reaction Status Date / Time No Known Allergies Allergy Verified 01/29/20 11:58 REVIEW OF SYSTEMS: CONSTITUTIONAL: Absent: fever, chills, diaphoresis, generalized weakness, malaise, loss of appetite, weight change CARDIOVASCULAR: Absent: chest pain, syncope, palpitations, irregular heart rate, lightheadedness, peripheral edema RESPIRATORY: Absent: cough, shortness of breath, dyspnea with exertion, wheezing, stridor, hemoptysis GASTROINTESTINAL: Present: abdominal pain, abdominal distension, nausea, vomiting, diarrhea, Absent: constipation, melena, hematochezia GENITOURINARY: Absent: dysuria, frequency, urgency, hesitancy, hematuria, flank pain, genital pain MUSCULOSKELETAL: Absent: myalgia, arthralgia, joint swelling, back pain, neck pain SKIN: Absent: rash, itching, pallor HEMATOLOGIC/IMMUNOLOGIC: Absent: easy bleeding, easy bruising, lymphadenopathy NEUROLOGIC: Absent: headache, focal weakness, paresthesias, dizziness, unsteady gait, seizure, mental status changes, bladder or bowel incontinence PSYCHIATRIC: Absent: anxiety, depression, suicidal or homicidal ideation, hallucinations. PHYSICAL EXAM: GENERAL: Awake, alert, and fully oriented, in no acute distress. HEAD: Normal with no signs of trauma. EYES: PERRL, sclera anicteric, conjunctiva clear. NECK: Normal ROM, supple without lymphadenopathy, JVD, or masses. ABDOMEN: Soft, tender LLQ and suprapubic areas, not distended, normoactive bowel sounds, voluntary guarding, no rebound, no masses. No organomegaly. Healed abdominoplasty scars; no hernias. MUSCULOSKELETAL: Normal ROM at all joints. No bony deformities or tenderness. No CVA tenderness. UPPER EXTREMITIES: 2+ pulses, warm, well-perfused. No cyanosis. Cap refill <2 seconds. No peripheral edema. LOWER EXTREMITIES: 2+ pulses, warm, well-perfused. No calf tenderness. No peripheral edema. NEUROLOGICAL: Normal speech, gait not observed. PSYCH: Cooperative. Good eye contact. Appropriate mood and affect. SKIN: Warm, dry, normal turgor, no rashes or lesions noted. Vital Signs Temperature 98.5 F 01/30/20 05:51 Pulse Rate 84 01/30/20 05:51 Respiratory Rate 20 01/30/20 05:51 Blood Pressure 127/66 01/30/20 05:51 O2 Sat by Pulse Oximetry (%) 93 L 01/30/20 05:51 Lab Results WBC 6.2 K/mm3 (4.0-10.0) 01/30/20 06:30 RBC 4.34 M/mm3 (3.60-5.2) 01/30/20 06:30 Hgb 12.5 GM/dL (10.7-15.3) 01/30/20 06:30 Hct 37.1 % (32.4-45.2) 01/30/20 06:30 MCV 85.4 fl (80-96) 01/30/20 06:30 MCHC 33.7 g/dl (32.0-36.0) 01/30/20 06:30 RDW 13.8 % (11.6-15.6) 01/30/20 06:30 Plt Count 239 K/MM3 (134-434) 01/30/20 06:30 INR 1.32 (0.83-1.09) H 01/30/20 06:30 Sodium 136 mmol/L (136-145) 01/30/20 06:30 Potassium 3.7 mmol/L (3.5-5.1) 01/30/20 06:30 Chloride 98 mmol/L (98-107) 01/30/20 06:30 Carbon Dioxide 29 mmol/L (21-32) 01/30/20 06:30 Anion Gap 9 MMOL/L (8-16) 01/30/20 06:30 BUN 9.6 mg/dL (7-18) 01/30/20 06:30 Creatinine 0.8 mg/dL (0.55-1.3) 01/30/20 06:30 Random Glucose 80 mg/dL (74-106) 01/30/20 06:30 Calcium 8.7 mg/dL (8.5-10.1) 01/30/20 06:30 Blood Type A POSITIVE 01/29/20 20:50 Antibody Screen Negative 01/29/20 20:50 CT scan a/p reviewed images and reports IMP: acute sigmoid diverticulitis PLAN: NPO/IVF/IVABS and f/u; trend temp and WBC. Lei Durham MD FACS
--- NOTE | 2020-01-30 10:18 | CON.ID ---
Consult Consult Specialty:: infectious diseases Referred by:: Reason for Consultation:: abd pain, diverticulitis - History of Present Illness Chief Complaint: abd pain History of Present Illness: 30yoM with h/o cerebral palsy, nonverbal at baseline, seizures, asthma, and multiple prior admissions for hypoxia and aspiration pneumonia who presents from [facility] due to cough and vomiting. Patient was recently admitted 01/16-01/21 with aspiration pneumonia and discharged on clindamycin, which just completed on 01/24. Staff notes after his tube feed tonight he had a coughing episode and emesis so they brought him back to the ED. No known fever, diarrhea, shortness of breath. patient does have pain in the lower left quadrant and was worked up and found to have ac diverticulitis started on iv abx - History Source History Provided By: Patient, Medical Record Limitations to Obtaining History: Language Barrier - Past Medical History Cardio/Vascular: Yes: AFIB (paroxysmal), HTN, Hyperlipdemia Gastrointestinal: Yes: GERD ...: No - Past Surgical History Past Surgical History: Yes: None - Alcohol/Substance Use Hx Alcohol Use: No History of Substance Use: reports: None - Smoking History Smoking history: Never smoked Have you smoked in the past 12 months: No Aproximately how many cigarettes per day: 0 - Social History ADL: Independent Occupation: salesperson History of Recent Travel: No Home Medications - Allergies Allergies/Adverse Reactions: Allergies Allergy/AdvReac Type Severity Reaction Status Date / Time No Known Allergies Allergy Verified 01/29/20 11:58 - Home Medications Home Medications: Ambulatory Orders Omeprazole [Prilosec (RX)] 40 mg PO DAILY 08/07/15 Atorvastatin Ca [Lipitor] 20 mg PO HS #30 tablet 08/09/15 Rivaroxaban [Xarelto -] 20 mg PO DAILY 10/17/15 Metoprolol Succinate [Toprol XL -] 100 mg PO AM 04/13/19 Hydrochlorothiazide 25 mg PO DAILY 01/29/20 Family Medical History Family Hx Cardiac Disorders: Grandmother (maternal), Grandmother (paternal), Grandfather (maternal), Grandfather (paternal), Mother, Father Family Hx Coronary Artery Disease: Grandmother (maternal), Grandmother (paternal), Grandfather (maternal), Grandfather (paternal), Mother, Father Review of Systems - Review of Systems Constitutional: reports: No Symptoms Eyes: reports: No Symptoms HENT: reports: No Symptoms Neck: reports: No Symptoms Cardiovascular: reports: No Symptoms Respiratory: reports: No Symptoms Gastrointestinal: reports: Abdominal Pain, Other Genitourinary: reports: No Symptoms Musculoskeletal: reports: No Symptoms Integumentary: reports: No Symptoms Neurological: reports: No Symptoms Endocrine: reports: No Symptoms Hematology/Lymphatic: reports: No Symptoms Psychiatric: reports: No Symptoms Physical Exam Vital Signs: Vital Signs Temperature 98.5 F 01/30/20 05:51 Pulse Rate 84 01/30/20 05:51 Respiratory Rate 01/30/20 05:51 Blood Pressure 127/66 01/30/20 05:51 O2 Sat by Pulse Oximetry (%) 93 L 01/30/20 05:51 Constitutional: Yes: Well Nourished, Calm, Mild Distress Eyes: Yes: Conjunctiva Clear HENT: Yes: Atraumatic, Normocephalic Neck: Yes: Supple, Trachea Midline Cardiovascular: Yes: Pulse Irregular Respiratory: Yes: Regular, CTA Bilaterally Gastrointestinal: Yes: Soft, Tenderness, Other ...Rectal Exam: Yes: Deferred Musculoskeletal: Yes: WNL Extremities: Yes: WNL Neurological: Yes: Alert, Oriented Psychiatric: Yes: Alert, Oriented Labs: CBC, BMP 01/30/20 06:30 01/30/20 06:30 Imaging - Results Chest X-ray: Report Reviewed, Image Reviewed Cat Scan: Report Reviewed, Image Reviewed Assessment/Plan 50-year-old lady with Mhx of HTN, hyperlipidemia, Paroxismal AFib on Xarelto, GERD, hiatal hernia, colonic polyp resection (7yrs ago) and nodular goiter (benign), diverticulosis who comes to the ER complaining from worsening abdominal pain of 2 days duration associated with bloody BM (stool mixed with blood). admitted for acute diverticulitis with microperforation. ac diverticulitis leukocytosis afib htn hld gerd plan will conitnue zosyn npo hydration surgery on board rest as per the team
--- NOTE | 2020-01-30 10:29 | CON.GI ---
Consult Consult Specialty:: GI Referred by:: Hospitalist Service Reason for Consultation:: Abdominal Pain - History of Present Illness Chief Complaint: Abdominal Pain History of Present Illness: 55F admitted for evaluation of three days of progressive pelvic and LLQ pain. Prior to this had been on daily naprosyn x 2 weeks for right hip and knee pain. CT scan revealed sigmoid diverticulitis possibly with small perforation. No rectal bleeding, diarrhea. Had en episode of diverticulitis 11/02 (please refer to prior GI consult in [facility].) Had colonoscopy 03/27/14 performed by myself that revealed mild sigmoid diverticulitis and led to removal of hyperplastic rectal polyps. No family history of colon cancer. Currently, pain is about the same from admission. - History Source History Provided By: Patient, Medical Record - Past Medical History Cardio/Vascular: Yes: AFIB (paroxysmal), HTN, Hyperlipdemia Gastrointestinal: Yes: Diverticulitis (2014), Diverticulosis, GERD ...: No - Past Surgical History Past Surgical History: Yes: None Additional Surgical History: Breast reduction, Hyspterectomy due to endometriosis, abdominoplasty, cyst removal from right breast, - Alcohol/Substance Use Hx Alcohol Use: No History of Substance Use: reports: None - Smoking History Smoking history: Never smoked Have you smoked in the past 12 months: No Aproximately how many cigarettes per day: 0 - Social History ADL: Independent Occupation: salesperson Place of : Other ([employer] [employer] [facility]) History of Recent Travel: No Home Medications - Allergies Allergies/Adverse Reactions: Allergies Allergy/AdvReac Type Severity Reaction Status Date / Time No Known Allergies Allergy Verified 01/29/20 11:58 - Home Medications Home Medications: Ambulatory Orders Omeprazole [Prilosec (RX)] 40 mg PO DAILY 08/07/15 Atorvastatin Ca [Lipitor] 20 mg PO HS #30 tablet 08/09/15 Rivaroxaban [Xarelto -] 20 mg PO DAILY 10/17/15 Metoprolol Succinate [Toprol XL -] 100 mg PO AM 04/13/19 Hydrochlorothiazide 25 mg PO DAILY 01/29/20 Family Medical History Family Hx Cardiac Disorders: Grandmother (maternal), Grandmother (paternal), Grandfather (maternal), Grandfather (paternal), Mother, Father Family Hx Coronary Artery Disease: Grandmother (maternal), Grandmother (paternal), Grandfather (maternal), Grandfather (paternal), Mother, Father Other Family History: Father: h/o CAD w/ MT. Mother: h/o hyperlipidemia and HTN. 1 daughter: healthy. No family history of colorectal cancer or other GI malignancy Review of Systems - Review of Systems Constitutional: denies: Chills Cardiovascular: denies: Chest Pain Respiratory: denies: Cough Gastrointestinal: reports: Abdominal Pain. denies: Diarrhea, Melena, Rectal Bleeding Physical Exam-GI Vital Signs: Vital Signs Temperature 98.5 F 01/30/20 05:51 Pulse Rate 84 01/30/20 05:51 Respiratory Rate 20 01/30/20 05:51 Blood Pressure 127/66 01/30/20 05:51 O2 Sat by Pulse Oximetry (%) 93 L 01/30/20 05:51 Constitutional: Yes: Calm Eyes: No: Sclera Icterus Cardiovascular: Yes: Regular Rate and Rhythm Respiratory: Yes: CTA Bilaterally Gastrointestinal Inspection: Yes: Scars (+ abdominoplasty scar) ...Auscultate: Yes: Normoactive Bowel Sounds ...Palpate: Yes: Soft, Tenderness (Suprapubic / LLQ TTP) ...Percussion: No: Tympanitic Edema: No (No LE edema) Neurological: Yes: Alert Labs: CBC, BMP 01/30/20 06:30 01/30/20 06:30 INR, PTT INR 1.32 (0.83-1.09) H 01/30/20 06:30 Problem List - Problems (1) Diverticulitis Assessment/Plan: 2nd episode of acute sigmoid diverticulitis with question of microperforation given small pocket of air noted extraluminally. She is afebrile, hemodynamically stable with improved leukocytosis Recommend: Continued conservative measures for now: NPO / IV hydration Surgical evaluation Continue IV Abx per ID AM labs / CRP ordered for AM Follow-up colonoscopy in 6-8 weeks after acute issues resolve Other recommendation pending Ms. Cyr's clinical course Code(s): K57.92 - DVTRCLI OF INTEST, PART UNSP, W/O PERF OR ABSCESS W/O BLEED
[2020-01-30] MEDS: FAMOTIDINE 20 MG/50 ML IVPB 20 MG/50 ML MG IVPB SCH ×2 (10:41→21:06)
[2020-01-30] MEDS: SODIUM CHLORIDE 1,000 ML IV SCH (13:00)
--- NOTE | 2020-01-30 13:15 | PN ---
Physical Exam: SUBJECTIVE: Patient seen and examined. Complaining of lower abdominal pain, RLQ > LLQ. Denies fever, chills, SOB, chest pain, nausea, vomiting, diarrhea, constipation. OBJECTIVE: Vital Signs Period Temp Pulse Resp BP Sys/Garcia Pulse Ox Last 24 Hr 98.4 F-98.8 F 79-100 18-20 125-157/66-90 93-99 GENERAL: The patient is awake, alert, and fully oriented, in no acute distress. HEAD: Normal with no signs of trauma. EYES: PERRL, extraocular movements intact, sclera anicteric, conjunctiva clear. No ptosis. ENT: Ears normal, nares patent, oropharynx clear without exudates, moist mucous membranes. NECK: Trachea midline, full range of motion, supple. LUNGS: Breath sounds equal, clear to auscultation bilaterally, no wheezes, no crackles, no accessory muscle use. HEART: Regular rate and rhythm, S1, S2 without murmur, rub or gallop. ABDOMEN: Soft, tender in lower abdominal pain (LLQ > RLQ), rebound tenderness, normoactive bowel sounds, no guarding, no rebound, no hepatosplenomegaly, no masses. EXTREMITIES: 2+ pulses, warm, well-perfused, no edema. NEUROLOGICAL: Cranial nerves II through XII grossly intact. Normal speech, gait not observed. PSYCH: Normal mood, normal affect. SKIN: Warm, dry, normal turgor, no rashes or lesions noted Laboratory Results - last 24 hr 01/29/20 01/29/20 01/29/20 12:22 13:30 13:30 WBC 10.6 H RBC 4.58 Hgb 13.1 Hct 38.6 MCV 84.1 MCH 28.6 MCHC 34.1 RDW 13.9 Plt Count 361 D MPV 8.1 Absolute Neuts (auto) 7.9 Neutrophils % 73.9 Lymphocytes % 17.2 D Monocytes % 8.1 Eosinophils % 0.2 Basophils % 0.6 Nucleated RBC % 0 PT with INR INR PTT (Actin FS) Sodium 135 L Potassium 4.5 Chloride 97 L Carbon Dioxide 31 Anion Gap 7 L BUN 9.6 Creatinine 0.9 Est GFR (CKD-EPI)AfAm 82.84 Est GFR (CKD-EPI)NonAf 71.48 Random Glucose 91 Lactic Acid Calcium 9.4 Phosphorus Magnesium Total Bilirubin 1.0 AST 54 H ALT 29 Alkaline Phosphatase 125 H Total Protein 7.9 Albumin 3.9 TSH Urine Color Urine Appearance Urine pH Ur Specific [place] Urine Protein Urine Glucose (UA) Urine Ketones Urine Blood Urine Nitrite Urine Bilirubin Urine Urobilinogen Ur Leukocyte Esterase Stool Occult Blood Positive Blood Type Antibody Screen 01/29/20 01/29/20 01/29/20 20:00 20:50 20:50 WBC 10.2 H RBC 4.63 Hgb 13.4 Hct 39.4 MCV 85.1 MCH 29.0 MCHC 34.1 RDW 13.8 Plt Count 269 D MPV 8.0 Absolute Neuts (auto) Neutrophils % Lymphocytes % Monocytes % Eosinophils % Basophils % Nucleated RBC % PT with INR 17.40 H INR 1.47 H PTT (Actin FS) 35.2 Sodium Potassium Chloride Carbon Dioxide Anion Gap BUN Creatinine Est GFR (CKD-EPI)AfAm Est GFR (CKD-EPI)NonAf Random Glucose Lactic Acid Calcium Phosphorus Magnesium Total Bilirubin AST ALT Alkaline Phosphatase Total Protein Albumin TSH Urine Color Urine Appearance Urine pH Ur Specific [place] Urine Protein Urine Glucose (UA) Urine Ketones Urine Blood Urine Nitrite Urine Bilirubin Urine Urobilinogen Ur Leukocyte Esterase Stool Occult Blood Blood Type A POSITIVE Antibody Screen Negative 01/29/20 01/30/20 01/30/20 22:50 01:07 06:30 WBC 6.2 RBC 4.34 Hgb 12.5 Hct 37.1 MCV 85.4 MCH 28.8 MCHC 33.7 RDW 13.8 Plt Count 239 MPV 8.1 Absolute Neuts (auto) Neutrophils % Lymphocytes % Monocytes % Eosinophils % Basophils % Nucleated RBC % PT with INR INR PTT (Actin FS) Sodium Potassium Chloride Carbon Dioxide Anion Gap BUN Creatinine Est GFR (CKD-EPI)AfAm Est GFR (CKD-EPI)NonAf Random Glucose Lactic Acid 1.0 Calcium Phosphorus Magnesium Total Bilirubin AST ALT Alkaline Phosphatase Total Protein Albumin TSH Urine Color Yellow Urine Appearance Clear Urine pH 5.5 Ur Specific [place] 1.057 H Urine Protein Negative Urine Glucose (UA) Negative Urine Ketones 15 mg/dl Urine Blood Negative Urine Nitrite Negative Urine Bilirubin Negative Urine Urobilinogen 0.2 Ur Leukocyte Esterase Negative Stool Occult Blood Blood Type Antibody Screen 01/30/20 01/30/20 06:30 06:30 WBC RBC Hgb Hct MCV MCH MCHC RDW Plt Count MPV Absolute Neuts (auto) Neutrophils % Lymphocytes % Monocytes % Eosinophils % Basophils % Nucleated RBC % PT with INR 15.60 H INR 1.32 H PTT (Actin FS) Sodium 136 Potassium 3.7 Chloride 98 Carbon Dioxide 29 Anion Gap 9 BUN 9.6 Creatinine 0.8 Est GFR (CKD-EPI)AfAm 95.52 Est GFR (CKD-EPI)NonAf 82.42 Random Glucose 80 Lactic Acid Calcium 8.7 Phosphorus 4.2 Magnesium 2.2 Total Bilirubin 0.9 AST 34 ALT 28 Alkaline Phosphatase 111 Total Protein 7.0 Albumin 3.4 TSH 3.88 H Urine Color Urine Appearance Urine pH Ur Specific [place] Urine Protein Urine Glucose (UA) Urine Ketones Urine Blood Urine Nitrite Urine Bilirubin Urine Urobilinogen Ur Leukocyte Esterase Stool Occult Blood Blood Type Antibody Screen Active Medications Generic Name Dose Route Start Last Admin Trade Name Freq PRN Reason Stop Dose Admin Famotidine/Sodium Chloride 20 mg in 50 mls @ 100 mls/hr 01/29/20 22:00 01/30/20 10:41 Pepcid 20 Mg Premixed Ivpb - IVPB 100 mls/hr BID EMILY Administration Piperacillin Sod/Tazobactam 50 mls @ 100 mls/hr 01/30/20 10:45 01/30/20 10:41 Sod 3.375 gm/ Dextrose IVPB 100 mls/hr Q8H-IV EMILY Administration Protocol Sodium Chloride 1,000 mls @ 100 mls/hr 01/30/20 12:30 Normal Saline - IV ASDIR EMILY Metoprolol Succinate 100 mg 01/30/20 10:00 01/30/20 10:42 Toprol Xl - PO 100 mg DAILY EMILY Administration Morphine Sulfate 2 mg 01/29/20 21:20 Morphine Sulfate IVPUSH Q4H PRN PAIN LEVEL 6-10 ASSESSMENT/PLAN: Pt is a 55 year old male with PMHx of HTN, hyperlipidemia, Paroxismal AFib on Xarelto, GERD and nodular goiter (benign), diverticulosis presenting with worsening abdominal pain x 2 days and blood BM (mixed with stool), admitted for acute diverticulitis with probably microperforations #Acute sigmoid diverticulitis with microperforation and hematochezia -surgery/GI/ID consulted -per surgery IVF, NPO and IV zosyn; conservative management, no current surgical intervention -Held xarelto due to hematochezia -Trend H/H; currently stable (13.1 --> 13.4 --> 12.5) -Hx of diverticulosis with colonic polyps resection 7 years ago -Per GI, follow up colonoscopy in 3-4 weeks after discharge -morphine PRN for pain #Paroxysmal A fib -Held xarelto -continue metoprolol -cardio consulted #Hx of HTN -Continue metoprolol -Cont home HCTZ #Hx of HLD -Cont home statin #Hx of GERD -continue pepcid FEN NS 100cc/hr Monitor electrolytes NPO PPx SCD; held home xarelto for Afib for hematochezia/potential surgical intervention Dispo Admitted to med surg. On zosyn, NPO, IVF. Continue to follow surg recs. Held home xarelto due to hematochezia. Trend H/H. Visit type - Emergency Visit Emergency Visit: Yes ED Registration Date: 01/29/20 Care time: The patient presented to the Emergency Department on the above date and was hospitalized for further evaluation of their emergent condition. - New Patient This patient is new to me today: No - Critical Care Critical Care patient: No ATTENDING PHYSICIAN STATEMENT I saw and evaluated the patient. I reviewed the resident's note and discussed the case with the resident. I agree with the resident's findings and plan as documented. SUBJECTIVE: OBJECTIVE: ASSESSMENT AND PLAN:
--- NOTE | 2020-01-30 17:57 | PN ---
Teaching Attending Note Name of Resident: Estella Virk ATTENDING PHYSICIAN STATEMENT I saw and evaluated the patient. I reviewed the resident's note and discussed the case with the resident. I agree with the resident's findings and plan as documented. SUBJECTIVE: Ongoing LLQ pain. No nausea/vomiting/fever/chills. Reports bloody stool prior to admission - bright red blood, no further episodes. OBJECTIVE: Afebrile, Hemodynamically stable. Last Vital Signs Temp Pulse Resp BP Pulse Ox 98.6 F 84 20 120/70 98 01/30/20 16:30 01/30/20 16:30 01/30/20 16:30 01/30/20 16:30 01/30/20 15:00 HEENT - Atraumatic, Normocephalic. Heart - S1, S2, RRR Lungs - clear to auscultation Abdomen - Soft, LLQ tenderness. Bowel Sounds normal. Extremities - no edema, no calf tenderness Laboratory Results - last 24 hr 01/29/20 01/29/20 01/29/20 20:00 20:50 20:50 WBC 10.2 H RBC 4.63 Hgb 13.4 Hct 39.4 MCV 85.1 MCH 29.0 MCHC 34.1 RDW 13.8 Plt Count 269 D MPV 8.0 PT with INR 17.40 H INR 1.47 H PTT (Actin FS) 35.2 Sodium Potassium Chloride Carbon Dioxide Anion Gap BUN Creatinine Est GFR (CKD-EPI)AfAm Est GFR (CKD-EPI)NonAf Random Glucose Lactic Acid Calcium Phosphorus Magnesium Total Bilirubin AST ALT Alkaline Phosphatase Total Protein Albumin TSH Urine Color Urine Appearance Urine pH Ur Specific [place] Urine Protein Urine Glucose (UA) Urine Ketones Urine Blood Urine Nitrite Urine Bilirubin Urine Urobilinogen Ur Leukocyte Esterase Blood Type A POSITIVE Antibody Screen Negative 01/29/20 01/30/20 01/30/20 22:50 01:07 06:30 WBC 6.2 RBC 4.34 Hgb 12.5 Hct 37.1 MCV 85.4 MCH 28.8 MCHC 33.7 RDW 13.8 Plt Count 239 MPV 8.1 PT with INR INR PTT (Actin FS) Sodium Potassium Chloride Carbon Dioxide Anion Gap BUN Creatinine Est GFR (CKD-EPI)AfAm Est GFR (CKD-EPI)NonAf Random Glucose Lactic Acid 1.0 Calcium Phosphorus Magnesium Total Bilirubin AST ALT Alkaline Phosphatase Total Protein Albumin TSH Urine Color Yellow Urine Appearance Clear Urine pH 5.5 Ur Specific [place] 1.057 H Urine Protein Negative Urine Glucose (UA) Negative Urine Ketones 15 mg/dl Urine Blood Negative Urine Nitrite Negative Urine Bilirubin Negative Urine Urobilinogen 0.2 Ur Leukocyte Esterase Negative Blood Type Antibody Screen 01/30/20 01/30/20 06:30 06:30 WBC RBC Hgb Hct MCV MCH MCHC RDW Plt Count MPV PT with INR 15.60 H INR 1.32 H PTT (Actin FS) Sodium 136 Potassium 3.7 Chloride 98 Carbon Dioxide 29 Anion Gap 9 BUN 9.6 Creatinine 0.8 Est GFR (CKD-EPI)AfAm 95.52 Est GFR (CKD-EPI)NonAf 82.42 Random Glucose 80 Lactic Acid Calcium 8.7 Phosphorus 4.2 Magnesium 2.2 Total Bilirubin 0.9 AST 34 ALT 28 Alkaline Phosphatase 111 Total Protein 7.0 Albumin 3.4 TSH 3.88 H Urine Color Urine Appearance Urine pH Ur Specific [place] Urine Protein Urine Glucose (UA) Urine Ketones Urine Blood Urine Nitrite Urine Bilirubin Urine Urobilinogen Ur Leukocyte Esterase Blood Type Antibody Screen Current Medications Generic Name Dose Route Start Last Admin Trade Name Freq PRN Reason Stop Dose Admin Atorvastatin Calcium 20 mg 01/30/20 22:00 Lipitor - PO HS EMILY Hydrochlorothiazide 25 mg 01/31/20 10:00 Hctz - PO DAILY EMILY Famotidine/Sodium Chloride 20 mg in 50 mls @ 100 mls/hr 01/29/20 22:00 01/30/20 10:41 Pepcid 20 Mg Premixed Ivpb - IVPB 100 mls/hr BID EMILY Administration Piperacillin Sod/Tazobactam 50 mls @ 100 mls/hr 01/30/20 10:45 01/30/20 17:49 Sod 3.375 gm/ Dextrose IVPB 100 mls/hr Q8H-IV EMILY Administration Protocol Sodium Chloride 1,000 mls @ 100 mls/hr 01/30/20 12:30 01/30/20 13:00 Normal Saline - IV 100 mls/hr ASDIR EMILY Administration Metoprolol Succinate 100 mg 01/30/20 10:00 01/30/20 10:42 Toprol Xl - PO 100 mg DAILY EMILY Administration Morphine Sulfate 2 mg 01/29/20 21:20 01/30/20 17:46 Morphine Sulfate IVPUSH 2 mg Q4H PRN Administration PAIN LEVEL 6-10 Home Medications Medication Instructions Recorded Omeprazole [Prilosec (RX)] 40 mg PO DAILY 08/07/15 Atorvastatin Ca [Lipitor] 20 mg PO HS #30 tablet 08/09/15 Rivaroxaban [Xarelto -] 20 mg PO DAILY 10/17/15 Metoprolol Succinate [Toprol XL -] 100 mg PO AM 04/13/19 Hydrochlorothiazide 25 mg PO DAILY 01/29/20 ASSESSMENT AND PLAN: 50 year old lady with history of HTN, HLD, Paroxysmal Atrial Fibrillation on Xarelto, GERD and benign nodular goiter, Diverticulosis, history of colonic polyps s/p resection 7 years ago, presents with 2 day history of worsening abdominal pain, associated with bloody BMs. CT A/P - acute sigmoid diverticulitis with probable microperforation 1. Acute Diverticulitis with possible microperforation For conservative management for now - Continue bowel rest, IV Fluids, IV Zosyn GI, Surgery following. FOBT + Xarelto held, will monitor H/H 2. Paroxysmal Atrial Fibrillation Continue Metoprolol. Xarelto held due to FOBT+ in setting of acute diverticulitis Cardiology following. 3. HLD - Continue Metoprolol. HCTZ held. 4. HLD - Will hold Lipitor until acute illness resolves. DVT Px - SCDs. Heparin held due to guiaic positive stool. GI Px - Famotidine.
[2020-01-30] MEDS ORDERED: ATORVASTATIN CA 20 MG TABLET (FP) PO SCH (22:00)
[2020-01-31] MEDS ORDERED: DEXTROSE 5%-WATER - 50 ML IVPB ONE ×3 (01:53→16:56)
[2020-01-31] MEDS ORDERED: PIPERACILLIN/TAZOBACTAM 3.375 GM VIAL IVPB ONE ×3 (01:53→16:56)
[2020-01-31] MEDS: PIPERACILLIN/TAZOB 3.375 GM 3.375 GM in DEXTROSE 5%-WATER - 50 ML IVPB SCH ×3 (01:56→17:01)
[2020-01-31] MEDS: SODIUM CHLORIDE 1,000 ML IV SCH ×2 (02:05→17:05)
--- NOTE | 2020-01-31 08:32 | PN ---
Progress Note, Physician Chief Complaint: abd pain History of Present Illness: denies cp, sob, palp, syncope - Current Medication List Current Medications: Active Medications Famotidine/Sodium Chloride (Pepcid 20 Mg Premixed Ivpb -) 20 mg in 50 mls @ 100 mls/hr IVPB BID [facility] Last Admin: 01/30/20 21:06 Dose: 100 mls/hr Documented by: Piperacillin Sod/Tazobactam (Sod 3.375 gm/ Dextrose) 50 mls @ 100 mls/hr IVPB Q8H-IV EMILY; Protocol Last Admin: 01/31/20 01:56 Dose: 100 mls/hr Documented by: Sodium Chloride (Normal Saline -) 1,000 mls @ 100 mls/hr IV ASDIR [facility] Last Admin: 01/31/20 02:05 Dose: 100 mls/hr Documented by: Metoprolol Succinate (Toprol Xl -) 100 mg PO DAILY [facility] Last Admin: 01/30/20 10:42 Dose: 100 mg Documented by: Morphine Sulfate (Morphine Sulfate) 2 mg IVPUSH Q4H PRN PRN Reason: PAIN LEVEL 6-10 Last Admin: 01/30/20 17:46 Dose: 2 mg Documented by: - Objective Vital Signs: Vital Signs Temperature 97.6 F 01/31/20 06:13 Pulse Rate 76 01/31/20 06:13 Respiratory Rate 01/31/20 06:13 Blood Pressure 136/72 01/31/20 06:13 O2 Sat by Pulse Oximetry (%) 97 01/31/20 06:13 Constitutional: Yes: Well Nourished, No Distress, Calm Cardiovascular: Yes: Regular Rate and Rhythm, S1, S2. No: Gallop, Murmur Respiratory: Yes: Regular, CTA Bilaterally. No: Accessory Muscle Use, Rales, Wheezes Extremities: No: Cold Edema: No Neurological: Yes: Alert, Oriented Psychiatric: No: Agitated Labs: INR, PTT INR 1.32 (0.83-1.09) H 01/30/20 06:30 Assessment/Plan 1. Sigmoid diverticulitis, preop CV eval: -with radiographic evidence microperf, guaiac + stool -Abx as per primary team, general surgery and GI -follow H/H -surgery following, treating conservatively -in the event surgical treatment is indicated, pt is at acceptable CV risk for surgery with no s/sx of active CV disease and low revised CV risk index score 2. PAF: -Currently in NSR. -Xarelto held (guaiac +, reported bloody BMs, sig sigmoid inflammation and need for possible interventions) -Can continue Toprol to maintain NSR/rate control if she flips into AF. -Currently hemodynamically stable
[2020-01-31 08:34] LABS: BASO % 0.7 % (0-2.0); EOS % 2.7 % (0-4.5); HEMOGLOBIN 12.1 GM/dL (10.7-15.3); LYMPH % 38.7 % (8-40); MCH 28.6 pg (25.7-33.7); MCHC 33.6 g/dl (32.0-36.0); MEAN CELL VOLUME 85.1 fl (80-96); MEAN PLT VOLUME 7.7 fl (7.5-11.1); MONO % 13.6 % (3.8-10.2); NEUT % 44.3 % (42.8-82.8); PLATELET COUNT 254 K/MM3 (134-434); RBC 4.24 M/mm3 (3.60-5.2); RDW 13.5 % (11.6-15.6)
[2020-01-31 08:51] LABS: BLOOD UREA NITROGEN 12.1 mg/dL (7-18); CALCIUM 8.3 mg/dL (8.5-10.1); CREATININE 0.7 mg/dL (0.55-1.3); MAGNESIUM 2.2 mg/dL (1.8-2.4); PHOSPHOROUS 3.8 mg/dL (2.5-4.9); POTASSIUM 3.7 mmol/L (3.5-5.1)
[2020-01-31] MEDS: FAMOTIDINE 20 MG/50 ML IVPB 20 MG/50 ML MG IVPB SCH ×2 (09:34→21:55)
[2020-01-31] MEDS ORDERED: HYDROCHLOROTHIAZIDE 25 MG TABLET (FP) PO SCH (10:00)
--- NOTE | 2020-01-31 11:49 | PN ---
Progress Note (short form) - Note Progress Note: Attending Surgeon No c/o; feels better VSS AF abdo-soft; non tender WBC-nl IMP: improving PLAN: Suggest trial of clear liquids and continue IVAB's. Lei Durham MD FACS
--- NOTE | 2020-01-31 12:57 | PN ---
Physical Exam: SUBJECTIVE: Patient seen and examined. Improved abdominal pain. Denies f/c, n/v, diarrhea, constipation. OBJECTIVE: Vital Signs Period Temp Pulse Resp BP Sys/Garcia Pulse Ox Last 24 Hr 97.6 F-98.6 F 76-84 18-20 120-136/70-78 94-99 GENERAL: The patient is awake, alert, and fully oriented, in no acute distress. HEAD: Normal with no signs of trauma. EYES: PERRL, extraocular movements intact, sclera anicteric, conjunctiva clear. No ptosis. ENT: Ears normal, nares patent, oropharynx clear without exudates, moist mucous membranes. NECK: Trachea midline, full range of motion, supple. LUNGS: Breath sounds equal, clear to auscultation bilaterally, no wheezes, no crackles, no accessory muscle use. HEART: Regular rate and rhythm, S1, S2 without murmur, rub or gallop. ABDOMEN: Soft, tenderness in lower abdominal pain, rebound tenderness, nor moactive bowel sounds, no guarding, no rebound, no hepatosplenomegaly, no masses. EXTREMITIES: 2+ pulses, warm, well-perfused, no edema. NEUROLOGICAL: Cranial nerves II through XII grossly intact. Normal speech, gait not observed. PSYCH: Normal mood, normal affect. SKIN: Warm, dry, normal turgor, no rashes or lesions noted Laboratory Results - last 24 hr 01/29/20 01/31/20 01/31/20 22:00 07:08 07:08 WBC 4.0 RBC 4.24 Hgb 12.1 Hct 36.0 MCV 85.1 MCH 28.6 MCHC 33.6 RDW 13.5 Plt Count 254 MPV 7.7 Absolute Neuts (auto) 1.8 Neutrophils % 44.3 D Lymphocytes % 38.7 D Monocytes % 13.6 H Eosinophils % 2.7 D Basophils % 0.7 Nucleated RBC % 0 Sodium 140 Potassium 3.7 Chloride 103 Carbon Dioxide 27 Anion Gap 9 BUN 12.1 Creatinine 0.7 Est GFR (CKD-EPI)AfAm 112.26 Est GFR (CKD-EPI)NonAf 96.86 Random Glucose 62 L Calcium 8.3 L Phosphorus 3.8 Magnesium 2.2 C-Reactive Protein 8.8 H COVID-19 ([facility]) Not detected Active Medications Generic Name Dose Route Start Last Admin Trade Name Freq PRN Reason Stop Dose Admin Famotidine/Sodium Chloride 20 mg in 50 mls @ 100 mls/hr 01/29/20 22:00 01/31/20 09:34 Pepcid 20 Mg Premixed Ivpb - IVPB 100 mls/hr BID EMILY Administration Piperacillin Sod/Tazobactam 50 mls @ 100 mls/hr 01/30/20 10:45 01/31/20 10:27 Sod 3.375 gm/ Dextrose IVPB 100 mls/hr Q8H-IV EMILY Administration Protocol Sodium Chloride 1,000 mls @ 100 mls/hr 01/30/20 12:30 01/31/20 02:05 Normal Saline - IV 100 mls/hr ASDIR EMILY Administration Metoprolol Succinate 100 mg 01/30/20 10:00 01/31/20 09:34 Toprol Xl - PO 100 mg DAILY EMILY Administration Morphine Sulfate 2 mg 01/29/20 21:20 01/30/20 17:46 Morphine Sulfate IVPUSH 2 mg Q4H PRN Administration PAIN LEVEL 6-10 ASSESSMENT/PLAN: Pt is a 55 year old male with PMHx of HTN, hyperlipidemia, Paroxismal AFib on Xarelto, GERD and nodular goiter (benign), diverticulosis presenting with worsening abdominal pain x 2 days and blood BM (mixed with stool), admitted for acute diverticulitis with probably microperforations #Acute sigmoid diverticulitis with microperforation and hematochezia -surgery/GI/ID consulted -per surgery IVF, and IV zosyn; conservative management, no current surgical intervention -Trial of clear liquids per surgery - will f/u to see if tolerated -Held xarelto due to hematochezia -Trend H/H; currently stable (13.1 --> 13.4 --> 12.5 --> 12.1) -Hx of diverticulosis with colonic polyps resection 7 years ago -Per GI, follow up colonoscopy in 6-8 weeks after discharge -morphine PRN for pain #Paroxysmal A fib -Held xarelto due to hematochezia -continue metoprolol -cardio consulted #Hx of HTN -Continue metoprolol -Cont home HCTZ #Hx of HLD -Cont home statin #Hx of GERD -continue pepcid #Elevated TSH -TSH elevated 3.88 -Free T4 ordered for AM labs FEN NS 100cc/hr Monitor electrolytes Clear liquid trial PPx SCD; held home xarelto for Afib for hematochezia/potential surgical intervention Dispo Admitted to med surg. On zosyn, IVF. Continue to follow surg recs. Held home xarelto due to hematochezia. Trend H/H. Visit type - Emergency Visit Emergency Visit: Yes ED Registration Date: 01/29/20 Care time: The patient presented to the Emergency Department on the above date and was hospitalized for further evaluation of their emergent condition. - New Patient This patient is new to me today: No - Critical Care Critical Care patient: No ATTENDING PHYSICIAN STATEMENT I saw and evaluated the patient. I reviewed the resident's note and discussed the case with the resident. I agree with the resident's findings and plan as documented. SUBJECTIVE: OBJECTIVE: ASSESSMENT AND PLAN:
--- NOTE | 2020-01-31 15:38 | PN ---
Progress Note, Physician History of Present Illness: Pt states abd pain is slightly less. She has pain mainly with movement. Afebrile, without distress. - Current Medication List Current Medications: Active Medications Famotidine/Sodium Chloride (Pepcid 20 Mg Premixed Ivpb -) 20 mg in 50 mls @ 100 mls/hr IVPB BID EMILY Last Admin: 01/31/20 09:34 Dose: 100 mls/hr Documented by: Piperacillin Sod/Tazobactam (Sod 3.375 gm/ Dextrose) 50 mls @ 100 mls/hr IVPB Q8H-IV EMILY; Protocol Last Admin: 01/31/20 10:27 Dose: 100 mls/hr Documented by: Sodium Chloride (Normal Saline -) 1,000 mls @ 100 mls/hr IV ASDIR EMILY Last Admin: 01/31/20 02:05 Dose: 100 mls/hr Documented by: Metoprolol Succinate (Toprol Xl -) 100 mg PO DAILY [facility] Last Admin: 01/31/20 09:34 Dose: 100 mg Documented by: Morphine Sulfate (Morphine Sulfate) 2 mg IVPUSH Q4H PRN PRN Reason: PAIN LEVEL 6-10 Last Admin: 01/30/20 17:46 Dose: 2 mg Documented by: - Objective Vital Signs: Vital Signs Temperature 98.9 F 01/31/20 14:00 Pulse Rate 72 01/31/20 14:00 Respiratory Rate 01/31/20 14:00 Blood Pressure 130/77 01/31/20 14:00 O2 Sat by Pulse Oximetry (%) 98 01/31/20 14:00 Constitutional: Yes: No Distress, Calm Cardiovascular: Yes: Regular Rate and Rhythm Respiratory: Yes: CTA Bilaterally Gastrointestinal: Yes: Normal Bowel Sounds, Soft, Tenderness (lower abdomen with deep palpation) Genitourinary: Yes: WNL Edema: No Integumentary: Yes: WNL Neurological: Yes: Alert, Oriented Labs: CBC, BMP 01/31/20 07:08 01/31/20 07:08 INR, PTT INR 1.32 (0.83-1.09) H 01/30/20 06:30 - ....Imaging Cat Scan: Report Reviewed Assessment/Plan Acute diverticulitis w/ microperforation, no abscess -- continue antibiotics -- afebrile, wbc trended down -- Surgery following -- diet being advanced as tolerated, monitor
--- NOTE | 2020-01-31 15:38 | PN ---
Teaching Attending Note Name of Resident: Estella Virk ATTENDING PHYSICIAN STATEMENT I saw and evaluated the patient. I reviewed the resident's note and discussed the case with the resident. I agree with the resident's findings and plan as documented. SUBJECTIVE: Ongoing LLQ pain. No nausea/vomiting/fever/chills. Reports bloody stool prior to admission, no further episodes. OBJECTIVE: Afebrile, Hemodynamically stable. Last Vital Signs Temp Pulse Resp BP Pulse Ox 98.9 F 72 20 130/77 98 01/31/20 14:00 01/31/20 14:00 01/31/20 14:00 01/31/20 14:00 01/31/20 14:00 Heart - S1, S2, RRR Lungs - clear to auscultation Abdomen - Soft, LLQ tenderness. Bowel Sounds normal. Extremities - no edema, no calf tenderness Laboratory Results - last 24 hr 01/29/20 01/31/20 01/31/20 22:00 07:08 07:08 WBC 4.0 RBC 4.24 Hgb 12.1 Hct 36.0 MCV 85.1 MCH 28.6 MCHC 33.6 RDW 13.5 Plt Count 254 MPV 7.7 Absolute Neuts (auto) 1.8 Neutrophils % 44.3 D Lymphocytes % 38.7 D Monocytes % 13.6 H Eosinophils % 2.7 D Basophils % 0.7 Nucleated RBC % 0 Sodium 140 Potassium 3.7 Chloride 103 Carbon Dioxide 27 Anion Gap 9 BUN 12.1 Creatinine 0.7 Est GFR (CKD-EPI)AfAm 112.26 Est GFR (CKD-EPI)NonAf 96.86 Random Glucose 62 L Calcium 8.3 L Phosphorus 3.8 Magnesium 2.2 C-Reactive Protein 8.8 H COVID-19 ([facility]TE) Not detected Current Medications Generic Name Dose Route Start Last Admin Trade Name Freq PRN Reason Stop Dose Admin Famotidine/Sodium Chloride 20 mg in 50 mls @ 100 mls/hr 01/29/20 22:00 01/31/20 09:34 Pepcid 20 Mg Premixed Ivpb - IVPB 100 mls/hr BID EMILY Administration Piperacillin Sod/Tazobactam 50 mls @ 100 mls/hr 01/30/20 10:45 01/31/20 10:27 Sod 3.375 gm/ Dextrose IVPB 100 mls/hr Q8H-IV EMILY Administration Protocol Sodium Chloride 1,000 mls @ 100 mls/hr 01/30/20 12:30 01/31/20 02:05 Normal Saline - IV 100 mls/hr ASDIR EMILY Administration Metoprolol Succinate 100 mg 01/30/20 10:00 01/31/20 09:34 Toprol Xl - PO 100 mg DAILY EMILY Administration Morphine Sulfate 2 mg 01/29/20 21:20 01/30/20 17:46 Morphine Sulfate IVPUSH 2 mg Q4H PRN Administration PAIN LEVEL 6-10 Home Medications Medication Instructions Recorded Omeprazole [Prilosec (RX)] 40 mg PO DAILY 08/07/15 Atorvastatin Ca [Lipitor] 20 mg PO HS #30 tablet 08/09/15 Rivaroxaban [Xarelto -] 20 mg PO DAILY 10/17/15 Metoprolol Succinate [Toprol XL -] 100 mg PO AM 04/13/19 Hydrochlorothiazide 25 mg PO DAILY 01/29/20 ASSESSMENT AND PLAN: 50 year old lady with history of HTN, HLD, Paroxysmal Atrial Fibrillation on Xarelto, GERD and benign nodular goiter, Diverticulosis, history of colonic polyps s/p resection 7 years ago, presents with 2 day history of worsening abdominal pain, associated with bloody BMs. CT A/P - acute sigmoid diverticulitis with probable microperforation 1. Acute Diverticulitis with possible microperforation For conservative management for now - advance to clears, IV Fluids, IV Zosyn GI, Surgery following. FOBT +, Xarelto held, will monitor H/H 2. Paroxysmal Atrial Fibrillation Continue Metoprolol. Xarelto held due to FOBT+ in setting of acute diverticulitis Cardiology following. 3. HLD - Continue Metoprolol. HCTZ held. 4. HLD - Will hold Lipitor until acute illness resolves. 5. TSH elevated, 3.88 - Will request Free T4. DVT Px - SCDs. Heparin held due to guiaic positive stool. GI Px - Famotidine.
--- NOTE | 2020-01-31 18:34 | PN.GI ---
GI Progress Note Subjective: still with llq pain, no nausea and vomiting - Objective Vital Signs: Vital Signs Temperature 98.6 F 01/31/20 17:29 Pulse Rate 77 01/31/20 17:29 Respiratory Rate 20 01/31/20 17:29 Blood Pressure 121/65 01/31/20 17:29 O2 Sat by Pulse Oximetry (%) 98 01/31/20 14:00 Constitutional: Well Nourished Eyes: Yes: Conjunctiva Clear HENT: Yes: Atraumatic, Tonsillar Exudate Cardiovascular: Yes: Regular Rate and Rhythm Respiratory: Yes: CTA Bilaterally ...Palpate: Yes: Soft, Tenderness (llq). No: Firm/Rigid, Guarding, Hepatomegaly, Mass, Pulsatile Mass, Splenomegaly Labs: CBC, BMP 01/31/20 07:08 01/31/20 07:08 INR, PTT INR 1.32 (0.83-1.09) H 01/30/20 06:30 Problem List - Problems (1) Diverticulitis Assessment/Plan: resolving R>clear liquids continue antibiotics Code(s): K57.92 - DVTRCLI OF INTEST, PART UNSP, W/O PERF OR ABSCESS W/O BLEED
[2020-02-01] MEDS ORDERED: DEXTROSE 5%-WATER - 50 ML IVPB ONE ×3 (01:23→16:23)
[2020-02-01] MEDS ORDERED: PIPERACILLIN/TAZOBACTAM 3.375 GM VIAL IVPB ONE ×3 (01:23→16:22)
[2020-02-01] MEDS: PIPERACILLIN/TAZOB 3.375 GM 3.375 GM in DEXTROSE 5%-WATER - 50 ML IVPB SCH ×3 (01:24→17:13)
[2020-02-01 08:15] LABS: HEMOGLOBIN 11.6 GM/dL (10.7-15.3); LYMPH % 51.3 % (8-40); MCH 28.5 pg (25.7-33.7); MCHC 34.1 g/dl (32.0-36.0); MEAN CELL VOLUME 83.4 fl (80-96); MEAN PLT VOLUME 7.4 fl (7.5-11.1); MONO % 13.1 % (3.8-10.2); NEUT % 29.6 % (42.8-82.8); PLATELET COUNT 255 K/MM3 (134-434); RBC 4.08 M/mm3 (3.60-5.2); RDW 13.4 % (11.6-15.6); WHITE BLOOD COUNT 3.8 K/mm3 (4.0-10.0)
[2020-02-01 08:52] LABS: BLOOD UREA NITROGEN 6.3 mg/dL (7-18); CALCIUM 8.6 mg/dL (8.5-10.1); CREATININE 0.6 mg/dL (0.55-1.3); POTASSIUM 3.8 mmol/L (3.5-5.1)
[2020-02-01 08:55] LABS: MAGNESIUM 2.1 mg/dL (1.8-2.4)
[2020-02-01 08:59] LABS: PHOSPHOROUS 3.3 mg/dL (2.5-4.9)
[2020-02-01] MEDS ORDERED: PT OWN MED DRAWER 7, Y5N ONE (09:07)
[2020-02-01] MEDS: FAMOTIDINE 20 MG/50 ML IVPB 20 MG/50 ML MG IVPB SCH ×2 (09:12→21:50)
--- NOTE | 2020-02-01 11:20 | PN ---
Progress Note, Physician Chief Complaint: abd pain History of Present Illness: no cp, sob, palp, dizzy - Current Medication List Current Medications: Active Medications Famotidine/Sodium Chloride (Pepcid 20 Mg Premixed Ivpb -) 20 mg in 50 mls @ 100 mls/hr IVPB BID [facility] Last Admin: 02/01/20 09:12 Dose: 100 mls/hr Documented by: Piperacillin Sod/Tazobactam (Sod 3.375 gm/ Dextrose) 50 mls @ 100 mls/hr IVPB Q8H-IV EMILY; Protocol Last Admin: 02/01/20 09:12 Dose: 100 mls/hr Documented by: Sodium Chloride (Normal Saline -) 1,000 mls @ 100 mls/hr IV ASDIR [facility] Last Admin: 01/31/20 17:05 Dose: 100 mls/hr Documented by: Metoprolol Succinate (Toprol Xl -) 100 mg PO DAILY [facility] Last Admin: 02/01/20 09:12 Dose: 100 mg Documented by: Morphine Sulfate (Morphine Sulfate) 2 mg IVPUSH Q4H PRN PRN Reason: PAIN LEVEL 6-10 Last Admin: 01/30/20 17:46 Dose: 2 mg Documented by: - Objective Vital Signs: Vital Signs Temperature 98 F 02/01/20 09:02 Pulse Rate 77 02/01/20 09:02 Respiratory Rate 20 02/01/20 09:02 Blood Pressure 138/79 02/01/20 09:02 O2 Sat by Pulse Oximetry (%) 96 02/01/20 09:02 Constitutional: Yes: Well Nourished, No Distress, Calm Cardiovascular: Yes: Regular Rate and Rhythm. No: Gallop, Murmur Respiratory: Yes: Regular, CTA Bilaterally. No: Accessory Muscle Use Extremities: No: Cold Edema: No Neurological: Yes: Alert. No: Seizure Psychiatric: No: Agitated Labs: CBC, BMP 02/01/20 07:25 02/01/20 07:25 INR, PTT INR 1.32 (0.83-1.09) H 01/30/20 06:30 Assessment/Plan 1. Sigmoid diverticulitis, preop CV eval: -with radiographic evidence microperf, guaiac + stool -Abx as per primary team, general surgery and GI -follow H/H -surgery following, treating conservatively -in the event surgical treatment is indicated, pt is at acceptable CV risk for surgery with no s/sx of active CV disease and low revised CV risk index score 2. PAF: -Currently in NSR. -Xarelto held (guaiac +, reported bloody BMs, sig sigmoid inflammation and need for possible interventions) -Can continue Toprol to maintain NSR/rate control if she flips into AF. -Currently hemodynamically stable
--- NOTE | 2020-02-01 11:21 | PN ---
Progress Note (short form) - Note Progress Note: Attending Surgeon No c/o; feels better and tolerating diet VSS AF abdo-soft; non tender WBC-nl IMP: improving PLAN: Suggest advancing diet and continue IVAB's. Lei Durham MD FACS
--- NOTE | 2020-02-01 13:30 | PN ---
Progress Note (short form) - Note Progress Note: SUBJECTIVE: LLQ pain improving. No nausea/vomiting/fever/chills. Reports bloody stool prior to admission, no further episodes. OBJECTIVE: Afebrile, Hemodynamically stable. Last Vital Signs Temp Pulse Resp BP Pulse Ox 98 F 77 20 138/79 96 02/01/20 09:02 02/01/20 09:02 02/01/20 09:02 02/01/20 09:02 02/01/20 09:02 Heart - S1, S2, RRR Lungs - clear to auscultation Abdomen - high BMI, Soft, mild LLQ tenderness. Bowel Sounds normal. Extremities - no edema, no calf tenderness Laboratory Results - last 24 hr 02/01/20 02/01/20 02/01/20 07:25 07:25 07:25 WBC 3.8 L RBC 4.08 Hgb 11.6 Hct 34.0 MCV 83.4 MCH 28.5 MCHC 34.1 RDW 13.4 Plt Count 255 MPV 7.4 L Absolute Neuts (auto) 1.1 L Neutrophils % 29.6 L D Lymphocytes % 51.3 H D Monocytes % 13.1 H Eosinophils % 5.0 H D Basophils % 1.0 Nucleated RBC % 0 Sodium 140 Potassium 3.8 Chloride 107 Carbon Dioxide 28 Anion Gap 6 L BUN 6.3 L Creatinine 0.6 Est GFR (CKD-EPI)AfAm 118.09 Est GFR (CKD-EPI)NonAf 101.89 Random Glucose 92 Calcium 8.6 Phosphorus 3.3 Magnesium 2.1 Free T4 1.49 H Current Medications Generic Name Dose Route Start Last Admin Trade Name Geronimo PRN Reason Stop Dose Admin Famotidine/Sodium Chloride 20 mg in 50 mls @ 100 mls/hr 01/29/20 22:00 02/01/20 09:12 Pepcid 20 Mg Premixed Ivpb - IVPB 100 mls/hr BID EMILY Administration Piperacillin Sod/Tazobactam 50 mls @ 100 mls/hr 01/30/20 10:45 02/01/20 09:12 Sod 3.375 gm/ Dextrose IVPB 100 mls/hr Q8H-IV EMILY Administration Protocol Sodium Chloride 1,000 mls @ 100 mls/hr 01/30/20 12:30 01/31/20 17:05 Normal Saline - IV 100 mls/hr ASDIR EMILY Administration Metoprolol Succinate 100 mg 01/30/20 10:00 02/01/20 09:12 Toprol Xl - PO 100 mg DAILY EMILY Administration Morphine Sulfate 2 mg 01/29/20 21:20 01/30/20 17:46 Morphine Sulfate IVPUSH 2 mg Q4H PRN Administration PAIN LEVEL 6-10 Home Medications Medication Instructions Recorded Omeprazole [Prilosec (RX)] 40 mg PO DAILY 08/07/15 Atorvastatin Ca [Lipitor] 20 mg PO HS #30 tablet 08/09/15 Rivaroxaban [Xarelto -] 20 mg PO DAILY 10/17/15 Metoprolol Succinate [Toprol XL -] 100 mg PO AM 04/13/19 Hydrochlorothiazide 25 mg PO DAILY 01/29/20 ASSESSMENT AND PLAN: 50 year old lady with history of HTN, HLD, Paroxysmal Atrial Fibrillation on Xarelto, GERD and benign nodular goiter, Diverticulosis, history of colonic polyps s/p resection 7 years ago, presents with 2 day history of worsening abdominal pain, associated with bloody BMs. CT A/P - acute sigmoid diverticulitis with probable microperforation 1. Acute Diverticulitis with possible microperforation For conservative management for now - advance diet to soft, continue IV Fluids and IV Zosyn GI, Surgery following. FOBT +, Xarelto held, will monitor H/H 2. Paroxysmal Atrial Fibrillation Continue Metoprolol. Xarelto held due to FOBT+ in setting of acute diverticulitis Cardiology following. 3. HLD - Continue Metoprolol. HCTZ held. 4. HLD - Will hold Lipitor until acute illness resolves. 5. TSH elevated, 3.88 - T4 1.49. For repeat TFTs in 3-4 weeks once acute illness resolved. DVT Px - SCDs. Heparin held due to guiaic positive stool. GI Px - Famotidine. Visit type - Emergency Visit Emergency Visit: Yes ED Registration Date: 01/29/20 Care time: The patient presented to the Emergency Department on the above date and was hospitalized for further evaluation of their emergent condition. - New Patient This patient is new to me today: No - Critical Care Critical Care patient: No - Discharge Referral Referred to [facility] Med [facility].C.: No
--- NOTE | 2020-02-01 15:49 | PN ---
Progress Note, Physician History of Present Illness: Pt is alert, tolerating diet. Less LLQ abd pain. No episodes of n/v/d. Remains afebrile. - Current Medication List Current Medications: Active Medications Famotidine/Sodium Chloride (Pepcid 20 Mg Premixed Ivpb -) 20 mg in 50 mls @ 100 mls/hr IVPB BID EMILY Last Admin: 02/01/20 09:12 Dose: 100 mls/hr Documented by: Piperacillin Sod/Tazobactam (Sod 3.375 gm/ Dextrose) 50 mls @ 100 mls/hr IVPB Q8H-IV EMILY; Protocol Last Admin: 02/01/20 09:12 Dose: 100 mls/hr Documented by: Sodium Chloride (Normal Saline -) 1,000 mls @ 75 mls/hr IV ASDIR EMILY Metoprolol Succinate (Toprol Xl -) 100 mg PO DAILY [facility]ILY Last Admin: 02/01/20 09:12 Dose: 100 mg Documented by: Morphine Sulfate (Morphine Sulfate) 2 mg IVPUSH Q4H PRN PRN Reason: PAIN LEVEL 6-10 Last Admin: 01/30/20 17:46 Dose: 2 mg Documented by: - Objective Vital Signs: Vital Signs Temperature 97.6 F 02/01/20 14:00 Pulse Rate 71 02/01/20 14:00 Respiratory Rate 02/01/20 14:00 Blood Pressure 150/81 02/01/20 14:00 O2 Sat by Pulse Oximetry (%) 99 02/01/20 14:00 Constitutional: Yes: No Distress, Calm Cardiovascular: Yes: Regular Rate and Rhythm Respiratory: Yes: Regular Gastrointestinal: Yes: Normal Bowel Sounds, Soft, Tenderness (minimal in LLQ with deep palp) Genitourinary: Yes: WNL Neurological: Yes: Alert, Oriented Labs: CBC, BMP 02/01/20 07:25 02/01/20 07:25 INR, PTT INR 1.32 (0.83-1.09) H 01/30/20 06:30 Assessment/Plan Acute diverticulitis w/ microperforation, no abscess -- less abd pain, tolerating diet -- being managed conservatively -- continue antibiotics -- afebrile, wbc trended down -- Surgery following
[2020-02-01] MEDS: SODIUM CHLORIDE 1,000 ML IV SCH (16:00)
[2020-02-02] MEDS ORDERED: PIPERACILLIN/TAZOBACTAM 3.375 GM VIAL IVPB ONE ×3 (00:49→17:25)
[2020-02-02] MEDS ORDERED: DEXTROSE 5%-WATER - 50 ML IVPB ONE ×3 (00:50→17:25)
[2020-02-02] MEDS: PIPERACILLIN/TAZOB 3.375 GM 3.375 GM in DEXTROSE 5%-WATER - 50 ML IVPB SCH ×3 (01:03→17:28)
[2020-02-02] MEDS: SODIUM CHLORIDE 1,000 ML IV SCH ×3 (01:07→15:20)
--- NOTE | 2020-02-02 09:10 | PN ---
Progress Note (short form) - Note Progress Note: Surgery: Pt without any complaints of pain. She had 2 BMs yesterday. No nausea or emesis. Vital Signs Period Temp Pulse Resp BP Sys/Garcia Pulse Ox Last 24 Hr 97.6 F-98.5 F 71-78 19-20 131-150/73-81 97-99 GEN: A&0x3, NAD ABD: soft, non-distended, non-tender CBC, BMP 02/01/20 07:25 02/01/20 07:25 A/P: 55 yo female with sigmoid diverticulitis, ?micro perforation Pt with improved abd pain, afebrile without leukocytosis. D/w Dr. Durham and diet advanced to fulls Recommend repeat CT scan with oral/IV contrast on sunday IV abx <Ramya Robison - Last Filed: 02/02/20 09:10> - Note Progress Note: Attending Surgeon: I personally saw and examined the patient. My examination reveals a patient with acute diverticulitis. I discussed the case with the surgical PA and agree with their findings and plan of care with any exceptions as noted. ~ Lei Durham MD, FACS <Lei Durham - Last Filed: 02/10/20 08:00>
[2020-02-02] MEDS: FAMOTIDINE 20 MG/50 ML IVPB 20 MG/50 ML MG IVPB SCH ×2 (09:45→21:36)
[2020-02-02 10:22] LABS: BASO % 0.5 % (0-2.0); EOS % 3.5 % (0-4.5); HEMATOCRIT 35.5 % (32.4-45.2); HEMOGLOBIN 12.1 GM/dL (10.7-15.3); LYMPH % 59.2 % (8-40); MCH 29.1 pg (25.7-33.7); MCHC 34.1 g/dl (32.0-36.0); MEAN CELL VOLUME 85.4 fl (80-96); MEAN PLT VOLUME 7.6 fl (7.5-11.1); MONO % 7.2 % (3.8-10.2); NEUT % 29.6 % (42.8-82.8); PLATELET COUNT 279 K/MM3 (134-434); RBC 4.16 M/mm3 (3.60-5.2); RDW 13.7 % (11.6-15.6); WHITE BLOOD COUNT 3.4 K/mm3 (4.0-10.0)
--- NOTE | 2020-02-02 10:43 | PN ---
Progress Note, Physician History of Present Illness: continues to improve abd pain better tolerating liquids - Current Medication List Current Medications: Active Medications Famotidine/Sodium Chloride (Pepcid 20 Mg Premixed Ivpb -) 20 mg in 50 mls @ 100 mls/hr IVPB BID EMILY Last Admin: 02/02/20 09:45 Dose: 100 mls/hr Documented by: Piperacillin Sod/Tazobactam (Sod 3.375 gm/ Dextrose) 50 mls @ 100 mls/hr IVPB Q8H-IV EMILY; Protocol Last Admin: 02/02/20 10:33 Dose: 100 mls/hr Documented by: Sodium Chloride (Normal Saline -) 1,000 mls @ 75 mls/hr IV ASDIR EMILY Last Admin: 02/02/20 01:07 Dose: 75 mls/hr Documented by: Metoprolol Succinate (Toprol Xl -) 100 mg PO DAILY [facility] Last Admin: 02/02/20 09:44 Dose: 100 mg Documented by: Morphine Sulfate (Morphine Sulfate) 2 mg IVPUSH Q4H PRN PRN Reason: PAIN LEVEL 6-10 Last Admin: 01/30/20 17:46 Dose: 2 mg Documented by: - Objective Vital Signs: Vital Signs Temperature 98.5 F 02/01/20 17:27 Pulse Rate 75 02/01/20 22:00 Respiratory Rate 19 02/01/20 22:00 Blood Pressure 135/79 02/01/20 22:00 O2 Sat by Pulse Oximetry (%) 98 02/01/20 22:00 Constitutional: Yes: No Distress, Calm Cardiovascular: Yes: S1, S2 Respiratory: Yes: Regular, CTA Bilaterally Gastrointestinal: Yes: Soft, Hypoactive Bowel Sounds Musculoskeletal: Yes: WNL Extremities: Yes: WNL Neurological: Yes: Alert, Oriented Psychiatric: Yes: Alert, Oriented Labs: CBC, BMP 02/02/20 09:25 INR, PTT INR 1.32 (0.83-1.09) H 01/30/20 06:30 Assessment/Plan 50-year-old lady with Mhx of HTN, hyperlipidemia, Paroxismal AFib on Xarelto, GERD, hiatal hernia, colonic polyp resection (7yrs ago) and nodular goiter (benign), diverticulosis who comes to the ER complaining from worsening abdomin al pain of 2 days duration associated with bloody BM (stool mixed with blood). admitted for acute diverticulitis with microperforation. ac diverticulitis leukocytosis afib htn hld gerd plan ct abx as per surgery will change to oral once patient tolerates solid rest as per the team
[2020-02-02 10:56] LABS: BLOOD UREA NITROGEN 6.7 mg/dL (7-18); CALCIUM 8.8 mg/dL (8.5-10.1); CREATININE 0.6 mg/dL (0.55-1.3)
--- NOTE | 2020-02-02 11:08 | PN ---
Progress Note (short form) - Note Progress Note: History of Present Illness: no cp, sob, palp, dizzy Current Medications Generic Name Dose Route Start Last Admin Trade Name Freq PRN Reason Stop Dose Admin Famotidine/Sodium Chloride 20 mg in 50 mls @ 100 mls/hr 01/29/20 22:00 02/02/20 09:45 Pepcid 20 Mg Premixed Ivpb - IVPB 100 mls/hr BID EMILY Administration Piperacillin Sod/Tazobactam 50 mls @ 100 mls/hr 01/30/20 10:45 02/02/20 10:33 Sod 3.375 gm/ Dextrose IVPB 100 mls/hr Q8H-IV EMILY Administration Protocol Sodium Chloride 1,000 mls @ 75 mls/hr 02/01/20 13:31 02/02/20 01:07 Normal Saline - IV 75 mls/hr ASDIR EMILY Administration Metoprolol Succinate 100 mg 01/30/20 10:00 02/02/20 09:44 Toprol Xl - PO 100 mg DAILY EMILY Administration Morphine Sulfate 2 mg 01/29/20 21:20 01/30/20 17:46 Morphine Sulfate IVPUSH 2 mg Q4H PRN Administration PAIN LEVEL 6-10 Vital Signs Period Temp Pulse Resp BP Sys/Garcia Pulse Ox Last 24 Hr 97.6 F-98.5 F 71-78 19-20 131-150/73-81 97-99 Constitutional: Yes: Well Nourished, No Distress, Calm Cardiovascular: Yes: Regular Rate and Rhythm. No: Gallop, Murmur Respiratory: Yes: Regular, CTA Bilaterally. No: Accessory Muscle Use Extremities: No: Cold Edema: No Neurological: Yes: Alert. No: Seizure Psychiatric: No: Agitated no jaundice diaphoresis Labs: CBC, BMP 02/02/20 09:25 02/02/20 09:25 Assessment/Plan 1. Sigmoid diverticulitis, preop CV eval: -with radiographic evidence microperf, guaiac + stool -Abx as per primary team, general surgery and GI -follow H/H -surgery following, treating conservatively -in the event surgical treatment is indicated, pt is at acceptable CV risk for surgery with no s/sx of active CV disease and low revised CV risk index score 2. PAF: -Currently in NSR. -Xarelto held (guaiac +, reported bloody BMs, sig sigmoid inflammation and need for possible interventions) -Can continue Toprol to maintain NSR/rate control if she flips into AF. -Currently hemodynamically stable
--- NOTE | 2020-02-02 12:36 | PN ---
Physical Exam: SUBJECTIVE: Patient seen and examined. Vastly improved abdominal pain. Denies f/c/n/v. Denies constipation/diarrhea. Denies CP/SOB. OBJECTIVE: Vital Signs Period Temp Pulse Resp BP Sys/Garcia Pulse Ox Last 24 Hr 97.6 F-98.6 F 71-78 19-20 131-155/73-90 97-99 GENERAL: The patient is awake, alert, and fully oriented, in no acute distress. HEAD: Normal with no signs of trauma. EYES: PERRL, extraocular movements intact, sclera anicteric, conjunctiva clear. No ptosis. ENT: Ears normal, nares patent, oropharynx clear without exudates, moist mucous membranes. NECK: Trachea midline, full range of motion, supple. LUNGS: Breath sounds equal, clear to auscultation bilaterally, no wheezes, no crackles, no accessory muscle use. HEART: Regular rate and rhythm, S1, S2 without murmur, rub or gallop. ABDOMEN: Soft, nontender, nondistended, normoactive bowel sounds, no guarding, no rebound, no hepatosplenomegaly, no masses. EXTREMITIES: 2+ pulses, warm, well-perfused, no edema. NEUROLOGICAL: Cranial nerves II through XII grossly intact. Normal speech, gait not observed. PSYCH: Normal mood, normal affect. SKIN: Warm, dry, normal turgor, no rashes or lesions noted Laboratory Results - last 24 hr 02/02/20 02/02/20 09:25 09:25 WBC 3.4 L RBC 4.16 Hgb 12.1 Hct 35.5 MCV 85.4 MCH 29.1 MCHC 34.1 RDW 13.7 Plt Count 279 MPV 7.6 Absolute Neuts (auto) 1.0 L Neutrophils % 29.6 L Lymphocytes % 59.2 H Monocytes % 7.2 Eosinophils % 3.5 Basophils % 0.5 Nucleated RBC % 0 Sodium 139 Potassium 4.0 Chloride 106 Carbon Dioxide 29 Anion Gap 4 L BUN 6.7 L Creatinine 0.6 Est GFR (CKD-EPI)AfAm 118.09 Est GFR (CKD-EPI)NonAf 101.89 Random Glucose 115 H Calcium 8.8 Active Medications Generic Name Dose Route Start Last Admin Trade Name Freq PRN Reason Stop Dose Admin Famotidine/Sodium Chloride 20 mg in 50 mls @ 100 mls/hr 01/29/20 22:00 02/02/20 09:45 Pepcid 20 Mg Premixed Ivpb - IVPB 100 mls/hr BID EMILY Administration Piperacillin Sod/Tazobactam 50 mls @ 100 mls/hr 01/30/20 10:45 02/02/20 10:33 Sod 3.375 gm/ Dextrose IVPB 100 mls/hr Q8H-IV EMILY Administration Protocol Sodium Chloride 1,000 mls @ 75 mls/hr 02/01/20 13:31 02/02/20 01:07 Normal Saline - IV 75 mls/hr ASDIR EMILY Administration Metoprolol Succinate 100 mg 01/30/20 10:00 02/02/20 09:44 Toprol Xl - PO 100 mg DAILY EMILY Administration Morphine Sulfate 2 mg 01/29/20 21:20 01/30/20 17:46 Morphine Sulfate IVPUSH 2 mg Q4H PRN Administration PAIN LEVEL 6-10 ASSESSMENT/PLAN: Pt is a 55 year old male with PMHx of HTN, hyperlipidemia, Paroxismal AFib on Xarelto, GERD and nodular goiter (benign), diverticulosis presenting with worsening abdominal pain x 2 days and blood BM (mixed with stool), admitted for acute diverticulitis with probably microperforations #Sepsis 2/2 to acute sigmoid diverticulitis with microperforation and hematochezia -surgery/GI/ID consulted -per surgery IVF, and IV zosyn; conservative management, no current surgical intervention -Advanced to regular (sodium controlled) diet -Per surg - repeat CT scan with contrast in AM -Zosyn day 5 -On discharge, switch to oral augmentin and flagyl for additional 7 days -Held xarelto due to hematochezia -Stable H/H -Hx of diverticulosis with colonic polyps resection 7 years ago -Per GI, follow up colonoscopy in 6-8 weeks after discharge -morphine PRN for pain #Paroxysmal A fib -Held xarelto due to hematochezia on admission; no episodes in hospital -continue metoprolol -cardio consulted #Hx of HTN -Continue metoprolol -Held HCTZ #Hx of HLD -Held home statin until acute illness resolves #Hx of GERD -continue pepcid #Elevated TSH -TSH elevated 3.88; T4 elevated 1.49 -Repeat outpatient in 3-4 weeks FEN NS 75cc/hr Monitor electrolytes Sodium controlled diet PPx SCD; held home xarelto for Afib for hematochezia/potential surgical intervention Visit type - Emergency Visit Emergency Visit: Yes ED Registration Date: 01/29/20 Care time: The patient presented to the Emergency Department on the above date and was hospitalized for further evaluation of their emergent condition. - New Patient This patient is new to me today: No - Critical Care Critical Care patient: No ATTENDING PHYSICIAN STATEMENT I saw and evaluated the patient. I reviewed the resident's note and discussed the case with the resident. I agree with the resident's findings and plan as documented. SUBJECTIVE: OBJECTIVE: ASSESSMENT AND PLAN:
--- NOTE | 2020-02-02 15:02 | PN ---
Teaching Attending Note Name of Resident: Estella Virk ATTENDING PHYSICIAN STATEMENT I saw and evaluated the patient. I reviewed the resident's note and discussed the case with the resident. I agree with the resident's findings and plan as documented. SUBJECTIVE: LLQ pain resolved. No nausea/vomiting/fever/chills. Reports bloody stool prior to admission, no further episodes. Stool more formed, no blood reported. OBJECTIVE: Afebrile, Hemodynamically stable. Last Vital Signs Temp Pulse Resp BP Pulse Ox 98.6 F 77 20 155/90 97 02/02/20 09:00 02/02/20 09:00 02/02/20 09:00 02/02/20 09:00 02/02/20 09:00 Heart - S1, S2, RRR Lungs - clear to auscultation Abdomen - high BMI, Soft, non-tenderness. Bowel Sounds normal. Extremities - no edema, no calf tenderness Laboratory Results - last 24 hr 02/02/20 02/02/20 09:25 09:25 WBC 3.4 L RBC 4.16 Hgb 12.1 Hct 35.5 MCV 85.4 MCH 29.1 MCHC 34.1 RDW 13.7 Plt Count 279 MPV 7.6 Absolute Neuts (auto) 1.0 L Neutrophils % 29.6 L Lymphocytes % 59.2 H Monocytes % 7.2 Eosinophils % 3.5 Basophils % 0.5 Nucleated RBC % 0 Sodium 139 Potassium 4.0 Chloride 106 Carbon Dioxide 29 Anion Gap 4 L BUN 6.7 L Creatinine 0.6 Est GFR (CKD-EPI)AfAm 118.09 Est GFR (CKD-EPI)NonAf 101.89 Random Glucose 115 H Calcium 8.8 ASSESSMENT AND PLAN: 50 year old lady with history of HTN, HLD, Paroxysmal Atrial Fibrillation on Xarelto, GERD and benign nodular goiter, Diverticulosis, history of colonic polyps s/p resection 7 years ago, presents with 2 day history of worsening abdominal pain, associated with bloody BMs. CT A/P - acute sigmoid diverticulitis with probable microperforation 1. Acute Diverticulitis with possible microperforation For conservative management for now - advance diet to regular, IV Zosyn GI, Surgery following - further recommendations as per GI. FOBT +, Xarelto held, will monitor H/H For transition to oral Abx Augmentin and Flagyl on discharge for an additional 7 days. 2. Paroxysmal Atrial Fibrillation Continue Metoprolol. Xarelto held due to FOBT+ in setting of acute diverticulitis Cardiology following. 3. HLD - Continue Metoprolol. HCTZ held. 4. HLD - Will hold Lipitor until acute illness resolves. 5. TSH elevated, 3.88 - T4 1.49. For repeat TFTs in 3-4 weeks once acute illness resolved. 6. Bladder Wall thickened on CT, incidental finding - for outpatient Urology follow up. DVT Px - SCDs. Heparin held due to guiaic positive stool. GI Px - Famotidine.
[2020-02-03] MEDS ORDERED: PIPERACILLIN/TAZOBACTAM 3.375 GM VIAL IVPB ONE ×3 (02:05→17:50)
[2020-02-03] MEDS ORDERED: DEXTROSE 5%-WATER - 50 ML IVPB ONE ×3 (02:05→17:50)
[2020-02-03] MEDS: PIPERACILLIN/TAZOB 3.375 GM 3.375 GM in DEXTROSE 5%-WATER - 50 ML IVPB SCH ×3 (02:09→17:53)
--- NOTE | 2020-02-03 07:49 | PN ---
Progress Note, Physician History of Present Illness: still c/o of pain improving - Current Medication List Current Medications: Active Medications Famotidine/Sodium Chloride (Pepcid 20 Mg Premixed Ivpb -) 20 mg in 50 mls @ 100 mls/hr IVPB BID EMILY Last Admin: 02/02/20 21:36 Dose: 100 mls/hr Documented by: Piperacillin Sod/Tazobactam (Sod 3.375 gm/ Dextrose) 50 mls @ 100 mls/hr IVPB Q8H-IV EMILY; Protocol Last Admin: 02/03/20 02:09 Dose: 100 mls/hr Documented by: Sodium Chloride (Normal Saline -) 1,000 mls @ 75 mls/hr IV ASDIR EMILY Last Admin: 02/02/20 15:20 Dose: 75 mls/hr Documented by: Metoprolol Succinate (Toprol Xl -) 100 mg PO DAILY [facility] Last Admin: 02/02/20 09:44 Dose: 100 mg Documented by: Morphine Sulfate (Morphine Sulfate) 2 mg IVPUSH Q4H PRN PRN Reason: PAIN LEVEL 6-10 Last Admin: 01/30/20 17:46 Dose: 2 mg Documented by: - Objective Vital Signs: Vital Signs Temperature 97.7 F 02/03/20 06:57 Pulse Rate 60 02/03/20 06:57 Respiratory Rate 20 02/03/20 06:57 Blood Pressure 134/75 02/03/20 06:57 O2 Sat by Pulse Oximetry (%) 95 02/03/20 06:57 Constitutional: Yes: Calm, Mild Distress, Obese Cardiovascular: Yes: Regular Rate and Rhythm Respiratory: Yes: Regular, CTA Bilaterally Gastrointestinal: Yes: Normal Bowel Sounds, Soft Musculoskeletal: Yes: WNL Extremities: Yes: WNL Neurological: Yes: Alert, Oriented Psychiatric: Yes: Alert, Oriented Labs: CBC, BMP 02/02/20 09:25 02/02/20 09:25 INR, PTT INR 1.32 (0.83-1.09) H 01/30/20 06:30 Assessment/Plan 50-year-old lady with Mhx of HTN, hyperlipidemia, Paroxismal AFib on Xarelto, GERD, hiatal hernia, colonic polyp resection (7yrs ago) and nodular goiter (benign), diverticulosis who comes to the ER complaining from worsening abdominal pain of 2 days duration associated with bloody BM (stool mixed with blood). admitted for acute diverticulitis with microperforation. ac diverticulitis leukocytosis afib htn hld gerd plan ct abx as per surgery once surgery clears can change to augmentin and flagyl combination rest as per the team
[2020-02-03 08:08] LABS: HEMATOCRIT 35.1 % (32.4-45.2); HEMOGLOBIN 11.9 GM/dL (10.7-15.3); MCH 28.2 pg (25.7-33.7); MCHC 33.9 g/dl (32.0-36.0); MEAN CELL VOLUME 83.3 fl (80-96); MEAN PLT VOLUME 7.6 fl (7.5-11.1); PLATELET COUNT 286 K/MM3 (134-434); RBC 4.22 M/mm3 (3.60-5.2); RDW 13.2 % (11.6-15.6); WHITE BLOOD COUNT 4.9 K/mm3 (4.0-10.0)
[2020-02-03 08:28] LABS: BLOOD UREA NITROGEN 7.6 mg/dL (7-18); CALCIUM 8.4 mg/dL (8.5-10.1); CREATININE 0.7 mg/dL (0.55-1.3); MAGNESIUM 1.9 mg/dL (1.8-2.4); PHOSPHOROUS 3.7 mg/dL (2.5-4.9); POTASSIUM 4.1 mmol/L (3.5-5.1)
[2020-02-03] MEDS: FAMOTIDINE 20 MG/50 ML IVPB 20 MG/50 ML MG IVPB SCH (10:18)
--- NOTE | 2020-02-03 11:12 | PN ---
Progress Note (short form) - Note Progress Note: Surgery: Pt without any complaints of pain. She had a BMs yesterday/non bloody. No nausea or emesis. Vital Signs Period Temp Pulse Resp BP Sys/Garcia Pulse Ox Last 24 Hr 97.7 F-98.1 F 60-77 20-20 134-145/75-85 94-99 GEN: A&0x3, NAD ABD: soft, non-distended, non-tender CBC, BMP 02/03/20 07:05 02/03/20 07:05 A/P: 55 yo female with sigmoid diverticulitis, ?micro perforation Pt with improved abd pain, afebrile without leukocytosis. D/w Dr. Durham and diet advanced to fulls Recommend repeat CT scan with oral/IV contrast tolday. If repeat ct scan improved may adv her diet. IV abx and plan for aggarwal eto oral augmentin/flagyl D/w Dr. Durham <Ramya Robison - Last Filed: 02/03/20 11:09> - Note Progress Note: Attending Surgeon: I personally saw and examined the patient. My examination reveals a patient with acute diverticulitis. I discussed the case with the surgical PA and agree with their findings and plan of care with any exceptions as noted. ~ Lei Durham MD, FACS <Lei Durham - Last Filed: 02/10/20 07:55>
--- NOTE | 2020-02-03 12:27 | PN ---
Progress Note (short form) - Note Progress Note: s: no cp, sob, palp, dizzy Current Medications Generic Name Dose Route Start Last Admin Trade Name Freq PRN Reason Stop Dose Admin Famotidine/Sodium Chloride 20 mg in 50 mls @ 100 mls/hr 01/29/20 22:00 02/03/20 10:18 Pepcid 20 Mg Premixed Ivpb - IVPB 100 mls/hr BID EMILY Administration Piperacillin Sod/Tazobactam 50 mls @ 100 mls/hr 01/30/20 10:45 02/03/20 10:43 Sod 3.375 gm/ Dextrose IVPB 100 mls/hr Q8H-IV EMILY Administration Protocol Sodium Chloride 1,000 mls @ 75 mls/hr 02/01/20 13:31 02/02/20 15:20 Normal Saline - IV 75 mls/hr ASDIR EMILY Administration Metoprolol Succinate 100 mg 01/30/20 10:00 02/03/20 10:18 Toprol Xl - PO 100 mg DAILY EMILY Administration Morphine Sulfate 2 mg 01/29/20 21:20 01/30/20 17:46 Morphine Sulfate IVPUSH 2 mg Q4H PRN Administration PAIN LEVEL 6-10 Rivaroxaban 20 mg 02/03/20 18:00 Xarelto PO 1800 EMILY Vital Signs Period Temp Pulse Resp BP Sys/Garcia Pulse Ox Last 24 Hr 97.7 F-98.1 F 60-77 20-20 134-145/75-85 94-99 Constitutional: Yes: Well Nourished, No Distress, Calm Cardiovascular: Yes: Regular Rate and Rhythm. No: Gallop, Murmur Respiratory: Yes: Regular, CTA Bilaterally. No: Accessory Muscle Use Extremities: No: Cold Edema: No Neurological: Yes: Alert. No: Seizure Psychiatric: No: Agitated no jaundice diaphoresis Assessment/Plan 1. Sigmoid diverticulitis, preop CV eval: -with radiographic evidence microperf, guaiac + stool -Abx as per primary team, general surgery and GI -follow H/H -surgery following, improving with conservative management -in the event surgical treatment is indicated, pt is at acceptable CV risk for surgery with no s/sx of active CV disease and low revised CV risk index score 2. PAF: -Currently in NSR. -Xarelto resumed - cont toprol
--- NOTE | 2020-02-03 14:56 | PN ---
Teaching Attending Note Name of Resident: Estella Virk ATTENDING PHYSICIAN STATEMENT I saw and evaluated the patient. I reviewed the resident's note and discussed the case with the resident. I agree with the resident's findings and plan as documented. SUBJECTIVE: pt seen and examined OBJECTIVE: Last Vital Signs Temp Pulse Resp BP Pulse Ox 98.1 F 72 20 145/84 99 02/03/20 08:51 02/03/20 08:51 02/03/20 08:51 02/03/20 08:51 02/03/20 09:00 GENERAL: Awake, alert, and fully oriented, in no acute distress. HEAD: Normal with no signs of trauma. EYES: Pupils equal, round and reactive to light, sclera anicteric, conjunctiva clear. LUNGS: Breath sounds equal, clear to auscultation bilaterally. No wheezes, and no crackles. No accessory muscle use. HEART: Regular rate and rhythm, normal S1 and S2 ABDOMEN: Soft, mildly tender LLQ on deep palpation, not distended MUSCULOSKELETAL: Normal range of motion at all joints. No bony deformities or tenderness. No CVA tenderness. UPPER EXTREMITIES: 2+ pulses, warm, well-perfused. No cyanosis. No clubbing. No peripheral edema. LOWER EXTREMITIES: 2+ pulses, warm, well-perfused. No calf tenderness. No peripheral edema. NEUROLOGICAL: Cranial nerves II-XII intact. Normal speech. Laboratory Last Values WBC 4.9 K/mm3 (4.0-10.0) 02/03/20 07:05 RBC 4.22 M/mm3 (3.60-5.2) 02/03/20 07:05 Hgb 11.9 GM/dL (10.7-15.3) 02/03/20 07:05 Hct 35.1 % (32.4-45.2) 02/03/20 07:05 MCV 83.3 fl (80-96) 02/03/20 07:05 MCH 28.2 pg (25.7-33.7) 02/03/20 07:05 MCHC 33.9 g/dl (32.0-36.0) 02/03/20 07:05 RDW 13.2 % (11.6-15.6) 02/03/20 07:05 Plt Count 286 K/MM3 (134-434) 02/03/20 07:05 MPV 7.6 fl (7.5-11.1) 02/03/20 07:05 Absolute Neuts (auto) 1.0 K/mm3 (1.5-8.0) L 02/02/20 09:25 Neutrophils % 29.6 % (42.8-82.8) L 02/02/20 09:25 Lymphocytes % 59.2 % (8-40) H 02/02/20 09:25 Monocytes % 7.2 % (3.8-10.2) 02/02/20 09:25 Eosinophils % 3.5 % (0-4.5) 02/02/20 09:25 Basophils % 0.5 % (0-2.0) 02/02/20 09:25 Nucleated RBC % 0 % (0-0) 02/02/20 09:25 PT with INR 15.60 SEC (9.7-13.0) H 01/30/20 06:30 INR 1.32 (0.83-1.09) H 01/30/20 06:30 PTT (Actin FS) 35.2 SECONDS (25.2-36.5) 01/29/20 20:50 Sodium 143 mmol/L (136-145) 02/03/20 07:05 Potassium 4.1 mmol/L (3.5-5.1) 02/03/20 07:05 Chloride 110 mmol/L (98-107) H 02/03/20 07:05 Carbon Dioxide 25 mmol/L (21-32) 02/03/20 07:05 Anion Gap 7 MMOL/L (8-16) L 02/03/20 07:05 BUN 7.6 mg/dL (7-18) 02/03/20 07:05 Creatinine 0.7 mg/dL (0.55-1.3) 02/03/20 07:05 Est GFR (CKD-EPI)AfAm 112.26 02/03/20 07:05 Est GFR (CKD-EPI)NonAf 96.86 02/03/20 07:05 Random Glucose 91 mg/dL (74-106) 02/03/20 07:05 Lactic Acid 1.0 mmol/L (0.4-2.0) 01/30/20 01:07 Calcium 8.4 mg/dL (8.5-10.1) L 02/03/20 07:05 Phosphorus 3.7 mg/dL (2.5-4.9) 02/03/20 07:05 Magnesium 1.9 mg/dL (1.8-2.4) 02/03/20 07:05 Total Bilirubin 0.9 mg/dL (0.2-1) 01/30/20 06:30 AST 34 U/L (15-37) 01/30/20 06:30 ALT 28 U/L (13-61) 01/30/20 06:30 Alkaline Phosphatase 111 U/L (45-117) 01/30/20 06:30 C-Reactive Protein 4.4 MG/DL (0.00-0.3) H 02/01/20 07:25 Total Protein 7.0 g/dl (6.4-8.2) 01/30/20 06:30 Albumin 3.4 g/dl (3.4-5.0) 01/30/20 06:30 TSH 3.88 uIU/ml (0.358-3.74) H 01/30/20 06:30 Free T4 1.49 ng/dl (0.76-1.46) H 02/01/20 07:25 Urine Color Yellow 01/29/20 22:50 Urine Appearance Clear 01/29/20 22:50 Urine pH 5.5 (5.0-8.0) 01/29/20 22:50 Ur Specific [place] 1.057 (1.010-1.035) H 01/29/20 22:50 Urine Protein Negative (NEGATIVE) 01/29/20 22:50 Urine Glucose (UA) Negative (NEGATIVE) 01/29/20 22:50 Urine Ketones 15 mg/dl (NEGATIVE) 01/29/20 22:50 Urine Blood Negative (NEGATIVE) 01/29/20 22:50 Urine Nitrite Negative (NEGATIVE) 01/29/20 22:50 Urine Bilirubin Negative (NEGATIVE) 01/29/20 22:50 Urine Urobilinogen 0.2 mg/dL (0.2-1.0) 01/29/20 22:50 Ur Leukocyte Esterase Negative (NEGATIVE) 01/29/20 22:50 Stool Occult Blood Positive (NEGATIVE) 01/29/20 12:22 COVID-19 (CHANTE) Not detected (Not Detected) 01/29/20 22:00 Blood Type A POSITIVE 01/29/20 20:50 Antibody Screen Negative 01/29/20 20:50 Active Medications Famotidine/Sodium Chloride (Pepcid 20 Mg Premixed Ivpb -) 20 mg in 50 mls @ 100 mls/hr IVPB BID EMILY Last Admin: 02/03/20 10:18 Dose: 100 mls/hr Documented by: Piperacillin Sod/Tazobactam (Sod 3.375 gm/ Dextrose) 50 mls @ 100 mls/hr IVPB Q8H-IV EMILY; Protocol Last Admin: 02/03/20 10:43 Dose: 100 mls/hr Documented by: Sodium Chloride (Normal Saline -) 1,000 mls @ 75 mls/hr IV ASDIR EMILY Last Admin: 02/02/20 15:20 Dose: 75 mls/hr Documented by: Metoprolol Succinate (Toprol Xl -) 100 mg PO DAILY EMILY Last Admin: 02/03/20 10:18 Dose: 100 mg Documented by: Morphine Sulfate (Morphine Sulfate) 2 mg IVPUSH Q4H PRN PRN Reason: PAIN LEVEL 6-10 Last Admin: 01/30/20 17:46 Dose: 2 mg Documented by: Rivaroxaban (Xarelto) 20 mg PO 1800 [facility] ASSESSMENT AND PLAN: 50 year old lady with history of HTN, HLD, Paroxysmal Atrial Fibrillation on Xarelto, GERD and benign nodular goiter, Diverticulosis, history of colonic polyps s/p resection 7 years ago, presents with 2 day history of worsening abdominal pain, associated with bloody BMs. # Acute Diverticulitis with possible microperforation improved with conservative management repeat CT w contrast showing improvement of sigmoid diverticulitis, no abscess or free air advance diet, PO abx GI, Surgery following, recommedations appreciated stable H&H resume Xarelto Paroxysmal Atrial Fibrillation HLD subclinical hypothyroidism DVT Proph
--- NOTE | 2020-02-03 17:15 | DS ---
Physical Exam: SUBJECTIVE: Patient seen and examined OBJECTIVE: Vital Signs Period Temp Pulse Resp BP Sys/Garcia Pulse Ox Last 24 Hr 97.7 F-98.9 F 60-77 20-20 134-146/75-89 95-99 PHYSICAL EXAM GENERAL: The patient is awake, alert, and fully oriented, in no acute distress. HEAD: Normal with no signs of trauma. EYES: PERRL, extraocular movements intact, sclera anicteric, conjunctiva clear. ENT: Ears normal, nares patent, oropharynx clear without exudates, moist mucous membranes. NECK: Trachea midline, full range of motion, supple. LUNGS: Breath sounds equal, clear to auscultation bilaterally, no wheezes, no crackles, no accessory muscle use. HEART: Regular rate and rhythm, S1, S2 without murmur, rub or gallop. ABDOMEN: Soft, nontender, nondistended, normoactive bowel sounds, no guarding, no rebound, no hepatosplenomegaly, no masses. EXTREMITIES: 2+ pulses, warm, well-perfused, no edema. NEUROLOGICAL: Cranial nerves II through XII grossly intact. Normal speech, gait not observed. PSYCH: Normal mood, normal affect. SKIN: Warm, dry, normal turgor, no rashes or lesions noted. LABS Laboratory Results - last 24 hr 02/03/20 02/03/20 07:05 07:05 WBC 4.9 RBC 4.22 Hgb 11.9 Hct 35.1 MCV 83.3 MCH 28.2 MCHC 33.9 RDW 13.2 Plt Count 286 MPV 7.6 Sodium 143 Potassium 4.1 Chloride 110 H Carbon Dioxide 25 Anion Gap 7 L BUN 7.6 Creatinine 0.7 Est GFR (CKD-EPI)AfAm 112.26 Est GFR (CKD-EPI)NonAf 96.86 Random Glucose 91 Calcium 8.4 L Phosphorus 3.7 Magnesium 1.9 HOSPITAL COURSE: Date of Admission:01/29/20 Date of Discharge: 02/03/20 Minutes to complete discharge: 36 Discharge Summary Problems reviewed: Yes Reason For Visit: PERFORATION OF INTESTINE Current Active Problems Diverticulitis (Acute) Perforation bowel (Acute) Rectal bleed (Acute) Condition: Improved - Instructions Diet, Activity, Other Instructions: You came into the hospital for abdominal pain and bloody bowel movements. You had a CT scan of your abdomen and pelvis which showed diverticulitis with microperforations (infection of your intestines with small holes). You were treated with antibiotics, IV fluids and bowel was rested by not eating anything. This allowed your intestines to recover. Your CT scan also showed your bladder had thickened, and you can follow up with a urologist outpatient for further evaluation. You had another CT scan to look at the progress, it showed significant improvement in your diverticulitis. Please continue your home medications as prescribed. Please START your antibiotics, augmentin 875/125 mg twice a day for 7 days and Flagyl 500 mg twice a day for 7 days. Please follow up with your primary care physician, Dr. Blood, within 1 week for your overall health care management. You will need to repeat your blood work to check your TSH levels in 3-4 weeks. Please follow up with your GI doctor, Dr. Del Castillo, within 2 weeks. Please schedule your colonscopy with his office in 6-8 weeks. Please follow up with your small business representative, Dr. Nieves, in 2 weeks for management of your atrial fibrillation. Please follow up with your urologist, Dr. Douglas, in 2 weeks. You will need to do a cystoscopy to further evaluate your thickened bladder. Please follow up with your surgeon, Dr. Durham within 2 weeks to further monitor your diverticulitis If you have any new, worsening, or changing symptoms please return to the ED or call 911. Referrals: Nikos Blood II, DO [Primary Care Provider] - Lei Durham MD [Staff Physician] - 2 Weeks (diverticulitis with microperforation) Froylan Nieves MD [Staff Physician] - (Afib on xarelto) Eliu Del Castillo MD [Staff Physician] - (colonoscopy 6 weeks) Efe Douglas MD [Staff Physician] - (bladder thickening ) Disposition: HOME - Home Medications Comprehensive Discharge Medication List: Ambulatory Orders Omeprazole [Prilosec (RX)] 40 mg PO DAILY 08/07/15 Atorvastatin Ca [Lipitor] 20 mg PO HS #30 tablet 08/09/15 Rivaroxaban [Xarelto -] 20 mg PO DAILY 10/17/15 Metoprolol Succinate [Toprol XL -] 100 mg PO AM 04/13/19 Hydrochlorothiazide 25 mg PO DAILY 01/29/20 Amoxicillin/Potassium Clav [Augmentin 875-125 Tablet] 1 each PO BID #14 tablet 02/02/20 metroNIDAZOLE [Flagyl -] 500 mg PO BID #14 tablet 02/02/20 This patient is new to me today: No Emergency Visit: Yes ED Registration Date: 01/29/20 Care time: The patient presented to the Emergency Department on the above date and was hospitalized for further evaluation of their emergent condition. Critical Care patient: No - Discharge Referral Referred to [facility] Med P.C.: No ATTENDING PHYSICIAN STATEMENT I saw and evaluated the patient. I reviewed the resident's note and discussed the case with the resident. I agree with the resident's findings and plan as documented. SUBJECTIVE: OBJECTIVE: ASSESSMENT AND PLAN:
[2020-02-03 17:20] VITALS: BP 136/81; PULSE 81; TEMP 98.6
[2020-02-03] MEDS ORDERED: RIVAROXABAN 20 MG TABLET PO SCH ×2 (18:00)
== END 2020-02-03 19:02 | disposition home or self-care (01) | DRG 720 ==
LOC: JER 11:50 → JERBED 20:36 → J8W 01-30 02:34
PROVIDERS: ADMIT Student in an Organized Health Care Education/Training Program; ATTEND Student in an Organized Health Care Education/Training Program
DX: A41.9 Sepsis, unspecified organism (principal); D72.829 Elevated white blood cell count, unspecified; K92.1 Melena; I48.0 Paroxysmal atrial fibrillation; K57.21 Diverticulitis of large intestine with perforation and abscess with bleeding; I10 Essential (primary) hypertension; E78.5 Hyperlipidemia, unspecified; K21.9 Gastro-esophageal reflux disease without esophagitis; E03.9 Hypothyroidism, unspecified
CPT/HCPCS: 36415; 71046-TC-FY; 74177-TC; 80048; 80053; 81003; 82272; 83605; 83735; 84100; 84439; 84443; 85025; 85027; 85610; 85730; 86140; 86850; 86900; 86901; 93005; 93010; 99285-25; Q9967; U0003

== ENCOUNTER 2020-12-26 10:35 | Emergency (ER) | payer OTHER ==
[2020-12-26 10:38] VITALS: TEMP 97.5; BMI 25.9
[2020-12-26] MEDS ORDERED: SODIUM CHLORIDE 0.9% 500 ML INFUS.BAG IV ONE (11:54)
[2020-12-26] MEDS ORDERED: PANTOPRAZOLE SODIUM 40 MG VIAL IVPUSH ONE (11:55)
[2020-12-26] MEDS ORDERED: PANTOPRAZOLE SODIUM 40 MG VIAL ONE (12:17)
[2020-12-26 12:28] LABS: BASO % 0.6 % (0-2.0); EOS % 1.4 % (0-4.5); HEMATOCRIT 35.7 % (32.4-45.2); HEMOGLOBIN 12.4 GM/dL (10.7-15.3); LYMPH % 45.2 % (8-40); MCH 29.6 pg (25.7-33.7); MCHC 34.7 g/dl (32.0-36.0); MEAN CELL VOLUME 85.2 fl (80-96); MEAN PLT VOLUME 7.4 fl (7.5-11.1); NEUT % 40.8 % (42.8-82.8); PLATELET COUNT 293 10^3/uL (134-434); RBC 4.19 M/mm3 (3.60-5.2); RDW 13.6 % (11.6-15.6); WHITE BLOOD COUNT 6.2 K/mm3 (4.0-10.0)
[2020-12-26 12:53] LABS: ALBUMIN 3.8 g/dl (3.4-5.0); BLOOD UREA NITROGEN 7.7 mg/dL (7-18); CALCIUM 8.7 mg/dL (8.5-10.1)
[2020-12-26 12:56] LABS: CREATININE 0.7 mg/dL (0.55-1.3)
[2020-12-26 12:57] LABS: BILIRUBIN,TOTAL 0.2 mg/dL (0.2-1)
[2020-12-26 12:58] LABS: TOT PROT 7.2 g/dl (6.4-8.2)
[2020-12-26 14:55] VITALS: BP 140/80; PULSE 68
[2020-12-26 16:06] LABS: URINE APPEARANCE CLEAR; URINE BILIRUBIN NEGATIVE (NEGATIVE); URINE COLOR YELLOW; URINE GLUCOSE (UA) NEGATIVE (NEGATIVE); URINE KETONE NEGATIVE (NEGATIVE)
[2020-12-26 16:07] LABS: URINE LEUK ESTERASE NEGATIVE (NEGATIVE); URINE NITRITE NEGATIVE (NEGATIVE); URINE PROTEIN NEGATIVE (NEGATIVE); URINE UROBILINOGEN 0.2 mg/dL (0.2-1.0)
== END 2020-12-26 15:40 | disposition home or self-care (01) ==
LOC: JER 10:35
PROC: 3E033NZ Introduction of Analgesics, Hypnotics, Sedatives into Peripheral Vein, Percutaneous Approach (ICD-10-PCS; principal; 2020-12-26)
DX: K62.5 Hemorrhage of anus and rectum (principal)
CPT/HCPCS: 36415; 74177-TC; 80053; 81003; 82272; 83690; 85025; 87086; 99285-25; C9803; Q9967; U0003; U0005

== ENCOUNTER 2023-03-28 15:41 | Emergency (ER) | payer OTHER ==
[2023-03-28 15:53] VITALS: TEMP 97.4; BMI 28.3
[2023-03-28] MEDS ORDERED: SODIUM CHLORIDE 0.9% 500 ML INFUS.BAG IV ONE (16:52)
[2023-03-28 17:24] LABS: BASO % 0.5 % (0-2.0); EOS % 1.1 % (0-4.5); HEMOGLOBIN 14.1 GM/dL (10.7-15.3); LYMPH % 42.8 % (8-40); MCH 28.6 pg (25.7-33.7); MCHC 33.6 g/dl (32.0-36.0); MEAN CELL VOLUME 85.2 fl (80-96); MONO % 7.5 % (3.8-10.2); NEUT % 48.1 % (42.8-82.8); PLATELET COUNT 314 10^3/uL (134-434); RBC 4.92 M/mm3 (3.60-5.2); RDW 14.1 % (11.6-15.6); WHITE BLOOD COUNT 6.5 K/mm3 (4.0-10.0)
[2023-03-28 17:58] LABS: ALBUMIN 4.2 g/dl (3.4-5.0); BLOOD UREA NITROGEN 6.3 mg/dL (7-18); CALCIUM 9.4 mg/dL (8.5-10.1); MAGNESIUM 2.1 mg/dL (1.8-2.4)
[2023-03-28 18:02] LABS: CREATININE 0.8 mg/dL (0.55-1.3)
[2023-03-28 18:03] LABS: BILIRUBIN,TOTAL 0.4 mg/dL (0.2-1); TOT PROT 7.7 g/dl (6.4-8.2)
[2023-03-28 19:32] VITALS: BP 145/90; PULSE 80; RESP 18
== END 2023-03-28 19:34 | disposition home or self-care (01) ==
LOC: JER 15:41
DX: R05.9 Cough, unspecified (principal); R00.2 Palpitations; R42 Dizziness and giddiness; R07.89 Other chest pain; R06.02 Shortness of breath; R55 Syncope and collapse; Z20.822 Contact with and (suspected) exposure to COVID-19
CPT/HCPCS: 0241U-QW; 36415; 71045-TC-FY; 80053; 83735; 84443; 84484; 85025; 93005; 93010; 99285-25